=== PATIENT | female | born 1960 | race African-American/Black ===

== ENCOUNTER 2018-02-19 16:10 | Inpatient (IN) | payer SELFPAY ==
[2018-02-19 16:18] VITALS: BP 125/57; PULSE 83; RESP 20; TEMP 99; O2SAT 96
[2018-02-19 18:07] LABS: INTERNATIONAL NORMALIZED RATIO 1.1 RATIO; PROTHROMBIN TIME - PATIENT 10.8 SEC (9.8-11.6)
[2018-02-19 18:27] LABS: BICARBONATE 25.6 MEQ/L (21.0-32.0); CALCIUM 9.1 MG/DL (8.5-10.1); CREATININE 0.92 MG/DL (0.50-1.00)
[2018-02-19] MEDS ORDERED: SODIUM CHLOR 0.9% 1000 ML INJ 1,000 ML IV SCH (19:32)
--- NOTE | 2018-02-19 19:34 | PD ---
HPI Chief Complaint: GI Complaint Time Seen by Provider: 19:24 Travel History International Travel<30 days: No Contact w/Intl Traveler<30days: No Traveled to known affect area: No History of Present Illness HPI 57-year-old female complains of abdominal pain for about 1 month. She reports after eating food it feels as though food is stuck in the upper abdomen. No vomiting, fever or diarrhea. She reports seeing a doctor once previously without any results. No weight loss or weight gain. Positive flatus. Prior surgical history includes . PFSH Past Medical History Cardiovascular Problems: Yes (SICKLE CELL) Diminished Hearing: No Sickle Cell Disease: Yes Menopausal: Yes Past Surgical History Other Surgery: Yes Social History Alcohol Use: No Tobacco Use: No Substance Use: No Allergies-Medications (Allergen,Severity, Reaction): Coded Allergies: penicillin G (Unverified Allergy, Severe, 07/09/17) Reported Meds & Prescriptions Reported Meds & Active Scripts Active No Active Prescriptions or Reported Medications Review of Systems Except as stated in HPI: all other systems reviewed are Neg General / Constitutional: No: Fever Cardiovascular: No: Chest Pain or Discomfort Respiratory: No: Cough, Shortness of Breath, Wheezing Physical Exam Narrative GENERAL: 57-year-old female mild distress secondary to pain, very thin Vital Signs Date Time Temp Pulse Resp B/P (MAP) Pulse Ox O2 Delivery O2 Flow Rate FiO2 02/19/18 16:18 99.0 83 20 125/57 (79) 96 SKIN: Warm and dry. HEAD: Atraumatic. Normocephalic. EYES: Pupils equal and round. No scleral icterus. No injection or drainage. ENT: No nasal bleeding or discharge. Mucous membranes pink and moist. NECK: Trachea midline. No JVD. CARDIOVASCULAR: Regular rate and rhythm. RESPIRATORY: No accessory muscle use. Clear to auscultation. Breath sounds equal bilaterally. GASTROINTESTINAL: Abdomen is mildly prominent. Generalized nonspecific tenderness to palpation noted. MUSCULOSKELETAL: Extremities without clubbing, cyanosis, or edema. No obvious deformities. NEUROLOGICAL: Awake and alert. No obvious cranial nerve deficits. Motor grossly within normal limits. Five out of 5 muscle strength in the arms and legs. Normal speech. PSYCHIATRIC: Appropriate mood and affect; insight and judgment normal. Data Data Last Documented VS Vital Signs Date Time Temp Pulse Resp B/P (MAP) Pulse Ox O2 Delivery O2 Flow Rate FiO2 02/19/18 23:33 98.2 83 20 123/58 99 02/19/18 22:09 Nasal Cannula 2.00 Orders Orders Complete Blood Count With Diff (02/19/18 16:21) Basic Metabolic Panel (Bmp) (02/19/18 16:21) Act Partial Throm Time (Ptt) (02/19/18 16:21) Prothrombin Time / Inr (Pt) (02/19/18 16:21) Urinalysis - C+S If Indicated (02/19/18 16:21) Iv Access Insert/Monitor (02/19/18 19:32) Ecg Monitoring (02/19/18 19:32) Oximetry (02/19/18 19:32) Ondansetron Inj (Zofran Inj) (02/19/18 19:45) Sodium Chlor 0.9% 1000 Ml Inj (Ns 1000 M (02/19/18 19:32) Sodium Chloride 0.9% Flush (Ns Flush) (02/19/18 19:45) Morphine Inj (Morphine Inj) (02/19/18 19:45) Al-Mag Hy-Si 40-40-4 Mg/Ml Liq (Mag-Al P (02/19/18 19:45) Lidocaine 2% Viscous (Xylocaine 2% Visco (02/19/18 19:45) Oral Contrast - Adult (02/19/18 19:38) Hepatic Functional Panel (02/19/18 17:30) Lipase (02/19/18 17:30) Type And Screen (02/19/18 21:06) Red Blood Cells (Rbc) (02/19/18 21:06) Blood Product Administration (02/19/18 21:06) Retic Count (02/19/18 21:06) Prothrombin Time / Inr (Pt) (02/19/18 21:08) Act Partial Throm Time (Ptt) (02/19/18 21:08) Sodium Chlor 0.9% 1000 Ml Inj (Ns 1000 M (02/19/18 22:45) Ct Abd/Pel W/O Iv Contrast (02/19/18 19:32) Admit Order (Ed Use Only) (02/19/18 ) Insurance Writer / Telemetry KENNEY.[email or web address] (02/19/18 23:31) Vital Signs (Adult) Q4H (02/19/18 23:31) Diet Npo (02/20/18 Breakfast) Activity Bed Rest (02/19/18 23:31) Labs Laboratory Tests Test 02/19/18 17:30 02/19/18 20:12 02/19/18 21:45 Prothrombin Time 10.8 SEC 10.9 SEC Prothromb Time International Ratio 1.1 RATIO 1.1 RATIO Activated Partial Thromboplast Time 24.6 SEC 21.9 SEC Blood Urea Nitrogen 9 MG/DL Creatinine 0.92 MG/DL Random Glucose 96 MG/DL Total Protein 9.8 GM/DL Albumin 3.6 GM/DL Calcium Level 9.1 MG/DL Alkaline Phosphatase 97 U/L Aspartate Amino Transf (AST/SGOT) 22 U/L Alanine Aminotransferase (ALT/SGPT) 10 U/L Total Bilirubin 2.1 MG/DL Direct Bilirubin 0.5 MG/DL Sodium Level 140 MEQ/L Potassium Level 4.9 MEQ/L Chloride Level 108 MEQ/L Carbon Dioxide Level 25.6 MEQ/L Anion Gap 6 MEQ/L Estimat Glomerular Filtration Rate 76 ML/MIN Indirect Bilirubin 1.6 MG/DL Lipase 219 U/L White Blood Count 10.7 TH/MM3 Red Blood Count 1.78 MIL/MM3 Hemoglobin 5.5 GM/DL Hematocrit 16.0 % Mean Corpuscular Volume 89.7 FL Mean Corpuscular Hemoglobin 30.6 PG Mean Corpuscular Hemoglobin Concent 34.2 % Red Cell Distribution Width 24.9 % Platelet Count 350 TH/MM3 Mean Platelet Volume 10.0 FL Neutrophils (%) (Auto) 64.2 % Lymphocytes (%) (Auto) 23.4 % Monocytes (%) (Auto) 10.4 % Eosinophils (%) (Auto) 0.3 % Basophils (%) (Auto) 1.7 % Neutrophils # (Auto) 6.8 TH/MM3 Lymphocytes # (Auto) 2.5 TH/MM3 Monocytes # (Auto) 1.1 TH/MM3 Eosinophils # (Auto) 0.0 TH/MM3 Basophils # (Auto) 0.2 TH/MM3 CBC Comment DIFF FINAL Differential Comment Reticulocyte Count 14.8 % Absolute Reticulocyte Count 214.1 MIL/L MDM Medical Decision Making Medical Screen Exam Complete: Yes Emergency Medical Condition: Yes Medical Record Reviewed: Yes Differential Diagnosis Constipation, Gastritis, Acute Cholecystitis, Biliary Colic, Pancreatitis, TREVIZO , Hepatitis, Bowel Obstruction, Cystitis, Mesenteric Ischemia, AAA, Appendicitis , Renal Stone/Hydronephrosis, GERD, perforated viscous Narrative Course CBC & BMP Diagram 02/19/18 17:30 Total Protein 9.8 H, Albumin 3.6, Calcium Level 9.1, Alkaline Phosphatase 97, Aspartate Amino Transf (AST/SGOT) 22, Alanine Aminotransferase (ALT/SGPT) 10, Total Bilirubin 2.1 H, Direct Bilirubin 0.5 H 02/19/18 20:12 Last 24 hours Impressions Abdomen/Pelvis CT 02/19/18 1932 Signed Impressions: Service Date/Time: Monday, February 19, 2018 22:44 - CONCLUSION: 1. Large cystic mass containing septations and calcifications within the abdomen and pelvis measuring up to 23 cm. 2. Small amount of free fluid. 3. Mild distention of the urinary bladder. 4. Minimal bibasilar densities could be atelectasis or minimal infiltrate. Jarred Salas MD Packed red cells ordered Case discussed with Dr Torre Critical Care Narrative Aggregate critical care time was 35 minutes. Time to perform other separately billable procedures was not included in the critical care time. My time did not include minutes spent treating any other patients simultaneously or on activities that did not directly contribute to the patient's treatment. The services I provided to this patient were to treat and/or prevent clinically significant deterioration that could result in: Hemorrhagic shock I provided critical care services requiring my management, as noted below: Chart data review, documentation time, medication orders and management, vital sign assessments/reviewing monitor data, ordering and reviewing lab tests, ordering and interpreting/reviewing x-rays and diagnostic studies, care of the patient and discussion of the patient with the admitting physicians. Diagnosis Primary Impression: Anemia Qualified Codes: D64.9 - Anemia, unspecified Additional Impression: Ovarian cystic mass Qualified Codes: N83.209 - Unspecified ovarian cyst, unspecified side Admitting Information Admitting Physician Requests: Admit Scripts No Active Prescriptions or Reported Eric Lewis MD Feb 19, 2018 19:34
[2018-02-19] MEDS ORDERED: ONDANSETRON HCL 4 MG/2 ML VIAL IVP ONE (19:45)
[2018-02-19] MEDS ORDERED: ALUMINUM/MAGNESIUM/SIMETH 30 ML CUP PO ONE (19:45)
[2018-02-19] MEDS ORDERED: LIDOCAINE VISCOUS 2% SOLN 15 ML UDC PO ONE (19:45)
[2018-02-19] MEDS ORDERED: MORPHINE SULFATE 8 MG/ML INJ IV PUSH ONE (19:45)
[2018-02-19] MEDS ORDERED: SODIUM CHLORIDE 0.9% FLUSH 10 ML FLUSH IV FLUSH PRN (19:45)
[2018-02-19 19:54] VITALS: BP 132/62; PULSE 80; RESP 16; O2SAT 97
[2018-02-19 20:51] LABS: AUTOMATED NEUTROPHIL # 6.8 TH/MM3 (1.8-7.7); BASOPHIL # 0.2 TH/MM3 (0-0.2); BASOPHIL % 1.7 % (0.0-2.0); EOSINOPHIL % 0.3 % (0.0-4.0); LYMPH % 23.4 % (9.0-44.0); LYMPHOCYTE # 2.5 TH/MM3 (1.0-4.8); MEAN CELL VOLUME 89.7 FL (80.0-100.0); MEAN CORPUSCULAR HEMOGLOBIN 30.6 PG (27.0-34.0); MEAN CORPUSCULAR HGB CONC 34.2 % (32.0-36.0); MONO % 10.4 % (0.0-8.0); MONOCYTE # 1.1 TH/MM3 (0-0.9); NEUT % 64.2 % (16.0-70.0); PLATELET COUNT 350 TH/MM3 (150-450); RED BLOOD COUNT 1.78 MIL/MM3 (4.00-5.30); RED CELL DISTRIBUTION WIDTH 24.9 % (11.6-17.2); WHITE BLOOD COUNT 10.7 TH/MM3 (4.0-11.0)
[2018-02-19 21:02] LABS: HEMOGLOBIN 5.5 GM/DL (11.6-15.3)
[2018-02-19 21:43] LABS: ALBUMIN 3.6 GM/DL (3.4-5.0); DIRECT BILIRUBIN ADULT 0.5 MG/DL (0.0-0.2); INDIRECT BILIRUBIN 1.6 MG/DL (0.0-0.8); TOTAL BILIRUBIN ADULT 2.1 MG/DL (0.2-1.0); TOTAL PROTEIN 9.8 GM/DL (6.4-8.2)
[2018-02-19 22:09] VITALS: BP 118/58; PULSE 93; RESP 16; TEMP 98.9; O2SAT 95
[2018-02-19 22:26] LABS: RETIC # 214.1 MIL/L (20.0-150.0); RETIC % 14.8 % (0.4-3.0)
[2018-02-19 22:36] LABS: INTERNATIONAL NORMALIZED RATIO 1.1 RATIO; PROTHROMBIN TIME - PATIENT 10.9 SEC (9.8-11.6)
[2018-02-19] MEDS ORDERED: SODIUM CHLOR 0.9% 1000 ML INJ 1,000 ML IV ONE (22:45)
--- NOTE | 2018-02-19 23:13 | RADRPT ---
EXAM DATE/TIME: 02/19/2018 22:44 [facility] COMPARISON: No previous studies available for comparison. INDICATIONS : Abdomen pain and distention, sickle cell crisis. ORAL CONTRAST: Prescribed oral contrast ingested. RADIATION DOSE: 5.12 CTDIvol (mGy) MEDICAL HISTORY : Sickle cell disease. SURGICAL HISTORY : None. ENCOUNTER: Initial ACUITY: 2 weeks PAIN SCALE: 7/10 LOCATION: Bilateral abdomen TECHNIQUE: Volumetric scanning of the abdomen and pelvis was performed. Using automated exposure control and ad justment of the mA and/or kV according to patient size, radiation dose was kept as low as reasonably achievable to obtain optimal diagnostic quality images. DICOM format image data is available electro nically for review and comparison. FINDINGS: LOWER LUNGS: Minimal bibasilar densities. LIVER: Homogeneous density without lesion. There is no dilation of the biliary tree. There are calcified ga llstones. SPLEEN: Normal size without lesion. PANCREAS: Within normal limits. KIDNEYS: Normal in size and shape. There is no mass, stone, or hydronephrosis. ADRENAL GLANDS: Within normal limits. VASCULAR: There is no aortic aneurysm. BOWEL/MESENTERY: The stomach, small bowel, and colon demonstrate no acute abnormality. There is no free intraperitone al air or fluid. Large mass containing septation and peripheral calcification in the abdomen inferior ly at the level of the bladder extending superiorly to the level of the kidneys measures 14.6 x 23.3 x 20.0 cm. ABDOMINAL WALL: Within normal limits. RETROPERITONEUM: There is no lymphadenopathy. BLADDER: No wall thickening or mass. Mildly distended. This REPRODUCTIVE: Small amount of pelvic free fluid. INGUINAL: There is no lymphadenopathy or hernia. MUSCULOSKELETAL: Within normal limits for patient age. CONCLUSION: 1. Large cystic mass containing septations and calcifications within the abdomen and pelvis measuring up to 23 cm. 2. Small amount of free fluid. 3. Mild distention of the urinary bladder. 4. Minimal bibasilar densities could be atelectasis or minimal infiltrate. Jarred Salas MD on February 19, 2018 at 23:04 Board Certified Radiologist. This report was verified electronically.
[2018-02-19 23:33] VITALS: BP 123/58; PULSE 83; RESP 20; TEMP 98.2; O2SAT 99
[2018-02-19 23:48] VITALS: BP 130/63; PULSE 82; RESP 21; TEMP 98; O2SAT 97
[2018-02-20] VITALS (13 sets, daily range): BP systolic 104–128; BP diastolic 52–62; PULSE 59–81; RESP 16–20; TEMP 98–98.8; O2SAT 86–98
[2018-02-20] MEDS ORDERED: SODIUM CHLORIDE 0.9% FLUSH 10 ML FLUSH IVF PRN
[2018-02-20] MEDS ORDERED: AZITHROMYCIN 250 MG TAB PO ONE
[2018-02-20] MEDS ORDERED: cefTRIAXone INJ 1,000 MG in SODIUM CHLORIDE 0.9% INJ 100 ML IV ONE ×2
[2018-02-20] MEDS ORDERED: ONDANSETRON HCL 4 MG/2 ML VIAL IVP PRN (00:45)
[2018-02-20] MEDS ORDERED: SODIUM CHLORIDE 0.9% FLUSH 10 ML FLUSH IV FLUSH PRN (00:45)
[2018-02-20] MEDS ORDERED: ACETAMINOPHEN 325 MG TAB PO PRN (00:45)
[2018-02-20] MEDS ORDERED: MAGNESIUM HYDROXIDE SUSP 30 ML CUP PO PRN (00:45)
[2018-02-20] MEDS ORDERED: NALOXONE HCL 0.4 MG/ML AMP IV PUSH PRN (00:45)
[2018-02-20] MEDS ORDERED: LACTULOSE SYRUP 20 GM/30 ML CUP PO PRN (00:45)
--- NOTE | 2018-02-20 00:54 | HHI.HP ---
HPI Service [facility] Primary Care Physician No Primary Care Physician Admission Diagnosis Anemia; Cystic Pelvic Mass Diagnoses: Chief Complaint: Abdominal pain Travel History International Travel<30 Days: No Contact w/Intl Traveler <30 Da: No Traveled to Known Affected Are: No History of Present Illness 57-year-old female with a history of sickle cell anemia presented to the ED with abdominal pain. She states the abdominal pain is an 8/10, throbbing, left- sided with associated nausea for the past 2 months, worse with eating, better with pain medicine. She states 2 months ago she moved from [place] and prior to her move she was evaluated there and had a scan done on her abdomen and was told nothing was wrong. She states she does have significant weight loss but is unsure how much of a loss. She states the abdominal distention has just been getting worse over the past few months. She does not have a primary care physician and she does not take any routine meds at home. She denies any other associated symptoms of chest pain, shortness of breath fevers or chills. Review of Systems Except as stated in HPI: all other systems reviewed are Neg Past Family Social History Past Medical History Sickle cell anemia Past Surgical History Left elbow repair Reported Medications Reported Meds & Active Scripts Active No Active Prescriptions or Reported Medications Allergies: Coded Allergies: penicillin G (Unverified Allergy, Severe, 07/09/17) Active Ordered Medications Current Medications Medications (Trade) Dose Ordered Sig/Jeri Route Start Time Stop Time Status Last Admin (NS Flush) 2 ml UNSCH PRN IV FLUSH 02/19/18 19:45 (NS Flush) 2 ml UNSCH PRN IVF 02/20/18 00:00 Family History Patient denies any family history. Social History Patient denies any tobacco, alcohol or illicit drug use Physical Exam Vital Signs Vital Signs Date Time Temp Pulse Resp B/P (MAP) Pulse Ox O2 Delivery O2 Flow Rate FiO2 02/20/18 00:43 98.4 81 17 122/59 (80) 95 02/19/18 23:48 98.0 82 21 130/63 97 02/19/18 23:33 98.2 83 20 123/58 99 02/19/18 22:09 98.9 93 16 118/58 (78) 95 Nasal Cannula 2.00 02/19/18 19:54 80 16 132/62 (85) 97 Room Air 02/19/18 16:18 99.0 83 20 125/57 (79) 96 Physical Exam GENERAL: This is a very thin patient SKIN: No rashes, ecchymoses or lesions. Cool and dry. HEAD: Atraumatic. Normocephalic. EYES: Pupils equal round and reactive. ENT: Nose without bleeding, purulent drainage or septal hematoma. Airway patent. NECK: Trachea midline. No JVD or lymphadenopathy. Supple, nontender, no meningeal signs. CARDIOVASCULAR: Regular rate and rhythm without murmurs, gallops, or rubs. RESPIRATORY: Clear to auscultation. Breath sounds equal bilaterally. No wheezes , rales, or rhonchi. GASTROINTESTINAL: Abdomen hard,tender, and distended. MUSCULOSKELETAL: Extremities without clubbing, cyanosis, or edema. No calf tenderness. NEUROLOGICAL: Awake and alert. . Motor and sensory grossly within normal limits. Normal speech. Laboratory Laboratory Tests Test 02/19/18 17:30 02/19/18 20:12 02/19/18 21:45 Prothrombin Time 10.8 10.9 Prothromb Time International Ratio 1.1 1.1 Activated Partial Thromboplast Time 24.6 21.9 Blood Urea Nitrogen 9 Creatinine 0.92 Random Glucose 96 Total Protein 9.8 Albumin 3.6 Calcium Level 9.1 Alkaline Phosphatase 97 Aspartate Amino Transf (AST/SGOT) 22 Alanine Aminotransferase (ALT/SGPT) 10 Total Bilirubin 2.1 Direct Bilirubin 0.5 Sodium Level 140 Potassium Level 4.9 Chloride Level 108 Carbon Dioxide Level 25.6 Anion Gap 6 Estimat Glomerular Filtration Rate 76 Indirect Bilirubin 1.6 Lipase 219 White Blood Count 10.7 Red Blood Count 1.78 Hemoglobin 5.5 Hematocrit 16.0 Mean Corpuscular Volume 89.7 Mean Corpuscular Hemoglobin 30.6 Mean Corpuscular Hemoglobin Concent 34.2 Red Cell Distribution Width 24.9 Platelet Count 350 Mean Platelet Volume 10.0 Neutrophils (%) (Auto) 64.2 Lymphocytes (%) (Auto) 23.4 Monocytes (%) (Auto) 10.4 Eosinophils (%) (Auto) 0.3 Basophils (%) (Auto) 1.7 Neutrophils # (Auto) 6.8 Lymphocytes # (Auto) 2.5 Monocytes # (Auto) 1.1 Eosinophils # (Auto) 0.0 Basophils # (Auto) 0.2 CBC Comment DIFF FINAL Differential Comment Reticulocyte Count 14.8 Absolute Reticulocyte Count 214.1 Result Diagram: 02/19/18201102/19/18 1730 Imaging Last Impressions Abdomen/Pelvis CT 02/19/18 1932 Signed Impressions: Service Date/Time: Monday, February 19, 2018 22:44 - CONCLUSION: 1. Large cystic mass containing septations and calcifications within the abdomen and pelvis measuring up to 23 cm. 2. Small amount of free fluid. 3. Mild distention of the urinary bladder. 4. Minimal bibasilar densities could be atelectasis or minimal infiltrate. MD Gian Villagran VTE Risk Assessment Gian VTE Risk Assessment: No/Low Risk (score <= 1) Caprini Risk Assessment Model Point Value = 1 Point Value = 2 Point Value = 3 Point Value = 5 Age 41-60 Minor surgery BMI > 25 kg/m2 Swollen legs Varicose veins or History of unexplained or recurrent spontaneous Oral contraceptives or hormone replacement Sepsis (< 1 month) Serious lung disease, including pneumonia (< 1 month) Abnormal pulmonary function Acute myocardial infarction Congestive heart failure (< 1 month) History of inflammatory bowel disease Medical patient at bed rest Age 61-74 Arthroscopic surgery Major open surgery (> 45 min) Laparoscopic surgery (> 45 min) Malignancy Confined to bed (> 72 hours) Immobilizing plaster cast Central venous access Age >= 75 History of VTE Family history of VTE Factor V Leiden Prothrombin [id number] Lupus anticoagulant Anticardiolipin antibodies Elevated serum homocysteine Heparin-induced thrombocytopenia Other congenital or acquired thrombophilia Stroke (< 1 month) Elective arthroplasty Hip, pelvis, or leg fracture Acute spinal cord injury (< 1 month) Prophylaxis Regimen Total Risk Factor Score Risk Level Prophylaxis Regimen 0-1 Low Early ambulation 2 Moderate Order ONE of the following: *Sequential Compression Device (SCD) *Heparin 5000 units SQ BID 3-4 Higher Order ONE of the following medications: *Heparin 5000 units SQ TID *Enoxaparin/Lovenox 40 mg SQ daily (WT < 150 kg, CrCl > 30 mL/min) *Enoxaparin/Lovenox 30 mg SQ daily (WT < 150 kg, CrCl > 10-29 mL/min) *Enoxaparin/Lovenox 30 mg SQ BID (WT < 150 kg, CrCl > 30 mL/min) AND/OR *Sequential Compression Device (SCD) 5 or more Highest Order ONE of the following medications: *Heparin 5000 units SQ TID (Preferred with Epidurals) *Enoxaparin/Lovenox 40 mg SQ daily (WT < 150 kg, CrCl > 30 mL/min) *Enoxaparin/Lovenox 30 mg SQ daily (WT < 150 kg, CrCl > 10-29 mL/min) *Enoxaparin/Lovenox 30 mg SQ BID (WT < 150 kg, CrCl > 30 mL/min) AND *Sequential Compression Device (SCD) Assessment and Plan Problem List: (1) Ovarian cystic mass ICD Code: N83.209 - Unspecified ovarian cyst, unspecified side Status: Acute (2) Anemia ICD Code: D64.9 - Anemia, unspecified Status: Acute Assessment and Plan 57-year-old female with a history of sickle cell anemia presented to the ED with abdominal pain. Ovarian cystic mass, suspect cancerous, patient was significant weight loss Abdominal CT reviewed and shows a large 23 cm cystic pelvic mass -CA 125 ordered -Consult medical oncology -Pain management with IV morphine Anemia, suspect combination of cancer and sickle cell Hemoglobin 5.5 -Transfuse 2 units PRBCs -BMP in a.m. DVT prophylaxis: SCDs Discussed Condition With patient, and RN Physician Certification 2 Midnight Certification Type: Admission for Inpatient Services Order for Inpatient Services The services are ordered in accordance with Medicare regulations or non- Medicare payer requirements, as applicable. In the case of services not specified as inpatient-only, they are appropriately provided as inpatient services in accordance with the 2-midnight benchmark. Estimated LOS (days): 2 days is the estimated time the patient will need to remain in the hospital, assuming treatment plan goals are met and no additional complications. Post-Hospital Plan: Home Problem Qualifiers (1) Ovarian cystic mass: Qualified Codes: N83.209 - Unspecified ovarian cyst, unspecified side (2) Anemia: Qualified Codes: D64.9 - Anemia, unspecified Daly Mena Feb 20, 2018 00:54
[2018-02-20] MEDS ORDERED: SODIUM CHLOR 0.9% 250 ML INJ 250 ML IV ONE (01:30)
[2018-02-20] MEDS ORDERED: MORPHINE SULFATE 2 MG/ML SYRINGE IV PUSH PRN (01:30)
[2018-02-20] MEDS ORDERED: MORPHINE SULFATE 4 MG/ML INJ IV PUSH PRN (01:30)
[2018-02-20] MEDS: SODIUM CHLORIDE 0.9% FLUSH 10 ML FLUSH IV FLUSH SCH ×2 (09:19→21:47)
[2018-02-20] MEDS: DOCUSATE SODIUM 50 MG/SENNA 8.6 MG TAB PO SCH ×2 (09:19→21:42)
[2018-02-20] MEDS ORDERED: oxyCODONE/ACETAMINOPHEN 10 MG/325 MG TAB PO PRN (09:30)
[2018-02-20] MEDS ORDERED: oxyCODONE/ACETAMINOPHEN 7.5 MG/325 MG TAB PO PRN (09:30)
--- NOTE | 2018-02-20 09:42 | HHI.PR ---
Addendum to Inpatient Note Addendum Reason: Additional Documentation Additional Information Pt complaining of abdominal pain, needs to urinate. pain is a 10/10. has trouble w constipation as well. denies any active bleeding per vagina or per rectum. Abdominal pain has been going on for the past 2 months. Was evaluated in [place] but pt cannot tell me what the work up results are. abdomen: distended, firm, tender throughout. no rebound or guarding. Pt cachectic. looks tired I discussed CT results w radiologist. CA-125 elevated. I have consulted [facility]-onc for further recommendations pain meds have been adjusted. Michelle Crawford MD Feb 20, 2018 09:42
[2018-02-20 12:39] LABS: AUTOMATED NEUTROPHIL # 6.4 TH/MM3 (1.8-7.7); BASOPHIL # 0.1 TH/MM3 (0-0.2); BASOPHIL % 1.3 % (0.0-2.0); EOSINOPHIL % 0.5 % (0.0-4.0); HEMATOCRIT 22.6 % (35.0-46.0); HEMOGLOBIN 8.2 GM/DL (11.6-15.3); LYMPH % 22.9 % (9.0-44.0); LYMPHOCYTE # 2.2 TH/MM3 (1.0-4.8); MEAN CELL VOLUME 85.2 FL (80.0-100.0); MEAN PLATELET VOLUME 9.8 FL (7.0-11.0); MONO % 8.6 % (0.0-8.0); MONOCYTE # 0.8 TH/MM3 (0-0.9); NEUT % 66.7 % (16.0-70.0); PLATELET COUNT 280 TH/MM3 (150-450); RED BLOOD COUNT 2.65 MIL/MM3 (4.00-5.30); RED CELL DISTRIBUTION WIDTH 19.1 % (11.6-17.2); WHITE BLOOD COUNT 9.6 TH/MM3 (4.0-11.0)
[2018-02-20 12:41] LABS: MEAN CORPUSCULAR HGB CONC 36.4 % (32.0-36.0)
[2018-02-20] MEDS: SODIUM CHLOR 0.9% 1000 ML INJ 1,000 ML IV SCH ×2 (12:41→21:44)
--- NOTE | 2018-02-20 13:09 | PD.CONS ---
History of Present Illness Service voice network administrator/onc Consult Requested By Dr. Crawford Reason for Consult large cystic mass Primary Care Physician No Primary Care Physician Diagnoses: (1) Ovarian cystic mass (2) Anemia History of Present Illness This is a 57 year old female who came to [facility] for abdominal pain and distention. Patient reports symptoms for past 1-2 months. She has a PMH of sickle cell anemia but tells me she has not been hospitalized for the illness in the past. Upon admission she was found to be profoundly anemic with hem of 5.5 she has since been transfused 4 units of PRBCs. Mrs. Leonard denies any vaginal bleeding, rectal bleeding or blood with urination. She states she has had difficulty in passing stool recently. She reports weight loss of unknown amount. She was seen in consult by both myself and Dr. Ty where it was explained to her and her family that although surgery is usually recommended for removal of cyst...in her current ill state we could relieve the pressure/pain she is feeling by having IR perform a CT guided drainage of pelvic cyst and sent the fluid for cytology. It was explained that once she is stronger and gaining her strength back then we can see her and further discuss surgery because chances are this cyst will fill back up with fluid in time. Mrs. Leonard and her family agreed that they would like to have the fluid drained by IR and we will readdress surgery with them once she is stronger. Dr. Ty also explained that he is unsure if her weight loss and anemia is related to the mass, or is her sickle cell contributing or possible another undiagnosed process. I also reviewed with her that her CA 125 is elevated but I discussed the limitations of that tumor marker. Question answered. Review of Systems Constitutional: COMPLAINS OF: Fatigue, Weight loss Gastrointestinal: COMPLAINS OF: Abdominal pain, Constipation Except as stated in HPI: all other systems reviewed are Neg Past Family Social History Allergies: Coded Allergies: penicillin G (Unverified Allergy, Severe, 07/09/17) Past Medical History sickle cell Past Surgical History tubal ligation 3 vaginal deliveries Reported Medications Per EMR Active Ordered Medications Current Medications Ondansetron HCl (Zofran Inj) 4 mg ONCE ONCE IVP Last administered on at 20:02; Start 02/19/18 at 19:45; Stop 02/19/18 at 19:46; Status DC Sodium Chloride 1,000 ml @ 1,000 mls/hr Q1H IV Last administered on 02/19/18at 20:02; Start 02/19/18 at 19:32; Stop 02/19/18 at 20:31; Status DC Sodium Chloride (NS Flush) 2 ml UNSCH PRN IV FLUSH FLUSH AFTER USING IV ACCESS ; Start 02/19/18 at 19:45 Morphine Sulfate (Morphine Inj) 5 mg ONCE ONCE IV PUSH Last administered on at 20:02; Start 02/19/18 at 19:45; Stop 02/19/18 at 19:46; Status DC Al Hydrox/Mg Hydrox/Simethicone (Mag-Al Plus Susp Liq) 30 ml ONCE ONCE PO Last administered on 02/19/18at 20:03; Start 02/19/18 at 19:45; Stop 02/19/18 at 19:46; Status DC Lidocaine HCl (Xylocaine 2% Viscous) 15 ml ONCE ONCE PO Last administered on at 20:02; Start 02/19/18 at 19:45; Stop 02/19/18 at 19:46; Status DC Sodium Chloride 1,000 ml @ 999 mls/hr BOLUS ONCE IV Last administered on 02/19at 22:43; Start 02/19/18 at 22:45; Stop 02/19/18 at 23:45; Status DC Sodium Chloride (NS Flush) 2 ml UNSCH PRN IVF FLUSH AFTER USING IV ACCESS; Start 02/20/18 at 00:00 Ceftriaxone Sodium 1000 mg/ Sodium Chloride 100 ml @ 200 mls/hr ONCE ONCE IV ; Start 02/20/18 at 00:00; Stop 02/20/18 at 00:29; Status DC Azithromycin (Zithromax) 500 mg ONCE ONCE PO ; Start 02/20/18 at 00:00; Stop at 00:01; Status DC Sodium Chloride 1,000 ml @ 100 mls/hr Q10H IV ; Start 02/20/18 at 00:43 Sodium Chloride (NS Flush) 2 ml UNSCH PRN IV FLUSH FLUSH AFTER USING IV ACCESS ; Start 02/20/18 at 00:45 Sodium Chloride (NS Flush) 2 ml BID IV FLUSH Last administered on 02/20/18at 09: 19; Start 02/20/18 at 09:00 Acetaminophen (Tylenol) 650 mg Q4H PRN PO TEMP > 100.4; Start 02/20/18 at 00:45 Ondansetron HCl (Zofran Inj) 4 mg Q6H PRN IVP NAUSEA OR VOMITING; Start at 00:45 Naloxone HCl (Narcan Inj) 0.4 mg UNSCH PRN IV PUSH SEE LABEL COMMENTS; Start at 00:45 Senna/Docusate Sodium (Mara-Colace) 1 tab BID PO Last administered on at 09:19; Start 02/20/18 at 09:00 Magnesium Hydroxide (Milk Of Magnesia Liq) 30 ml Q12H PRN PO Mild constipation ; Start 02/20/18 at 00:45 Lactulose (Lactulose Liq) 30 ml DAILY PRN PO SEVERE CONSITIPATION; Start at 00:45 Morphine Sulfate (Morphine Inj) 2 mg Q3H PRN IV PUSH pain 1-5 Last administered on 02/20/18at 03:47; Start 02/20/18 at 01:30 Morphine Sulfate (Morphine Inj) 4 mg Q3H PRN IV PUSH breakthroug pain Last administered on 02/20/18at 09:17; Start 02/20/18 at 01:30 Sodium Chloride 250 ml @ 15 mls/hr ONCE ONCE IV ; Start 02/20/18 at 01:30; Stop 02/20/18 at 18:09 Oxycodone/ Acetaminophen (Percocet 7.5-325 Mg) 1 tab Q4H PRN PO PAIN SCALE 3 TO 6; Start 02/20/18 at 09:30 Oxycodone/ Acetaminophen (Percocet 10-325 Mg) 1 tab Q6H PRN PO PAIN SCALE 7 TO 10; Start 02/20/18 at 09:30 Family History noncontributory Social History denies tobacco denies alcohol denies illegal drug use Physical Exam Vital Signs Vital Signs Date Time Temp Pulse Resp B/P (MAP) Pulse Ox O2 Delivery O2 Flow Rate FiO2 02/20/18 12:01 98.8 59 16 104/52 (69) 95 02/20/18 08:00 98.4 67 17 115/57 (76) 97 02/20/18 07:30 98.4 81 17 122/59 95 02/20/18 04:31 98.3 69 16 105/55 97 02/20/18 04:16 98.4 74 17 106/52 94 02/20/18 01:34 98.4 81 17 122/60 95 02/20/18 00:43 98.4 81 17 122/59 (80) 95 02/19/18 23:48 98.0 82 21 130/63 97 02/19/18 23:33 98.2 83 20 123/58 99 02/19/18 22:09 98.9 93 16 118/58 (78) 95 Nasal Cannula 2.00 02/19/18 19:54 80 16 132/62 (85) 97 Room Air 02/19/18 16:18 99.0 83 20 125/57 (79) 96 Physical Exam GENERAL: frail, in no apparent distress. SKIN: No rashes, ecchymoses or lesions. Cool and dry. HEAD: Atraumatic. Normocephalic. No temporal or scalp tenderness. EYES: Pupils equal round and reactive. Extraocular motions intact. No scleral icterus. No injection or drainage. NECK: Trachea midline. CARDIOVASCULAR: Regular rate and rhythm without murmurs, gallops, or rubs. RESPIRATORY: Clear to auscultation. Breath sounds equal bilaterally. No wheezes , rales, or rhonchi. GASTROINTESTINAL: Abdomen distended and firm, generalized tenderness MUSCULOSKELETAL: Extremities without clubbing, cyanosis, or edema. NEUROLOGICAL: Awake and alert. Normal speech. Laboratory Laboratory Tests Test 02/19/18 17:30 02/19/18 21:45 02/20/18 01:50 02/20/18 12:24 Estimat Glomerular Filtration Rate 76 ML/MIN Blood Urea Nitrogen 9 MG/DL Creatinine 0.92 MG/DL Random Glucose 96 MG/DL Total Protein 9.8 GM/DL Albumin 3.6 GM/DL Calcium Level 9.1 MG/DL Alkaline Phosphatase 97 U/L Aspartate Amino Transf (AST/SGOT) 22 U/L Alanine Aminotransferase (ALT/SGPT) 10 U/L Total Bilirubin 2.1 MG/DL Direct Bilirubin 0.5 MG/DL Sodium Level 140 MEQ/L Potassium Level 4.9 MEQ/L Chloride Level 108 MEQ/L Carbon Dioxide Level 25.6 MEQ/L Indirect Bilirubin 1.6 MG/DL Lipase 219 U/L Reticulocyte Count 14.8 % Absolute Reticulocyte Count 214.1 MIL/L Prothrombin Time 10.9 SEC Prothromb Time International Ratio 1.1 RATIO Activated Partial Thromboplast Time 21.9 SEC CA 125 Antigen 105.3 U/ML White Blood Count 9.6 TH/MM3 Red Blood Count 2.65 MIL/MM3 Hemoglobin 8.2 GM/DL Hematocrit 22.6 % Mean Corpuscular Volume 85.2 FL Mean Corpuscular Hemoglobin 31.0 PG Mean Corpuscular Hemoglobin Concent 36.4 % Red Cell Distribution Width 19.1 % Platelet Count 280 TH/MM3 Mean Platelet Volume 9.8 FL Neutrophils (%) (Auto) 66.7 % Lymphocytes (%) (Auto) 22.9 % Monocytes (%) (Auto) 8.6 % Eosinophils (%) (Auto) 0.5 % Basophils (%) (Auto) 1.3 % Neutrophils # (Auto) 6.4 TH/MM3 Lymphocytes # (Auto) 2.2 TH/MM3 Monocytes # (Auto) 0.8 TH/MM3 Eosinophils # (Auto) 0.0 TH/MM3 Basophils # (Auto) 0.1 TH/MM3 CBC Comment AUTO DIFF Laboratory Tests Test 02/19/18 17:30 02/19/18 20:12 02/19/18 21:45 02/20/18 01:50 Prothrombin Time 10.8 10.9 Prothromb Time International Ratio 1.1 1.1 Activated Partial Thromboplast Time 24.6 21.9 Blood Urea Nitrogen 9 Creatinine 0.92 Random Glucose 96 Total Protein 9.8 Albumin 3.6 Calcium Level 9.1 Alkaline Phosphatase 97 Aspartate Amino Transf (AST/SGOT) 22 Alanine Aminotransferase (ALT/SGPT) 10 Total Bilirubin 2.1 Direct Bilirubin 0.5 Sodium Level 140 Potassium Level 4.9 Chloride Level 108 Carbon Dioxide Level 25.6 Anion Gap 6 Estimat Glomerular Filtration Rate 76 Indirect Bilirubin 1.6 Lipase 219 White Blood Count 10.7 Red Blood Count 1.78 Hemoglobin 5.5 Hematocrit 16.0 Mean Corpuscular Volume 89.7 Mean Corpuscular Hemoglobin 30.6 Mean Corpuscular Hemoglobin Concent 34.2 Red Cell Distribution Width 24.9 Platelet Count 350 Mean Platelet Volume 10.0 Neutrophils (%) (Auto) 64.2 Lymphocytes (%) (Auto) 23.4 Monocytes (%) (Auto) 10.4 Eosinophils (%) (Auto) 0.3 Basophils (%) (Auto) 1.7 Neutrophils # (Auto) 6.8 Lymphocytes # (Auto) 2.5 Monocytes # (Auto) 1.1 Eosinophils # (Auto) 0.0 Basophils # (Auto) 0.2 CBC Comment DIFF FINAL Differential Comment Reticulocyte Count 14.8 Absolute Reticulocyte Count 214.1 CA 125 Antigen 105.3 Test 02/20/18 12:24 White Blood Count 9.6 Red Blood Count 2.65 Hemoglobin 8.2 Hematocrit 22.6 Mean Corpuscular Volume 85.2 Mean Corpuscular Hemoglobin 31.0 Mean Corpuscular Hemoglobin Concent 36.4 Red Cell Distribution Width 19.1 Platelet Count 280 Mean Platelet Volume 9.8 Neutrophils (%) (Auto) 66.7 Lymphocytes (%) (Auto) 22.9 Monocytes (%) (Auto) 8.6 Eosinophils (%) (Auto) 0.5 Basophils (%) (Auto) 1.3 Neutrophils # (Auto) 6.4 Lymphocytes # (Auto) 2.2 Monocytes # (Auto) 0.8 Eosinophils # (Auto) 0.0 Basophils # (Auto) 0.1 CBC Comment AUTO DIFF Date/Time Source Procedure Growth Status 02/20/18 01:50 Blood Peripheral Aerobic Blood Culture Pending Received 02/20/18 01:50 Blood Peripheral Anaerobic Blood Culture Pending Received Result Diagram: 02/19/18201102/19/18 1730 Imaging Last Impressions Abdomen/Pelvis CT 02/19/18 1932 Signed Impressions: Service Date/Time: Monday, February 19, 2018 22:44 - CONCLUSION: 1. Large cystic mass containing septations and calcifications within the abdomen and pelvis measuring up to 23 cm. 2. Small amount of free fluid. 3. Mild distention of the urinary bladder. 4. Minimal bibasilar densities could be atelectasis or minimal infiltrate. Jarred Salas MD Assessment and Plan Problem List: (1) Ovarian cystic mass ICD Codes: N83.209 - Unspecified ovarian cyst, unspecified side Status: Acute Plan: order placed to IR for ct guided drainage of pelvic cyst, as much fluid as possible, and fluid to be sent to cytology patient will follow up with voice network administrator/onc as out patient for discussion of surgery at a later date. (2) Anemia ICD Codes: D64.9 - Anemia, unspecified Status: Acute Plan: s/p transfusion of 4 units PRBCs daily labs monitored by hospitalist Discussed Condition With patient and family Physician Attestation This consult was seen by both myself and Dr. Ty and he is in agreement with plan of care. Problem Qualifiers (1) Ovarian cystic mass: Qualified Codes: N83.209 - Unspecified ovarian cyst, unspecified side (2) Anemia: Qualified Codes: D64.9 - Anemia, unspecified Arlene Friedman Feb 20, 2018 13:09
[2018-02-20 13:25] LABS: CORRECTED NUCLEATED RBC 2 /100 WBC (0-0); LYMPHOCYTES 19 % (9-44); MONOCYTES 3 % (0-8); NEUTROPHIL # MANUAL DIFF 7.5 TH/MM3 (1.8-7.7); NUCLEATED RED BLOOD CELL 2 (0-0); POLYS (SEG NEUTROPHILS) 78 % (16-70)
[2018-02-20 13:26] LABS: SICKLE CELLS 1+ (NORMAL); TARGET CELLS 1+ (NORMAL)
[2018-02-20 13:27] LABS: HOWELL-JOLLY BODIES PRESENT (NONE SEEN); KERATOCYTES OCC (NORMAL); POLYCHROMASIA 2.1 % (0.0-1.9)
[2018-02-20 13:31] LABS: ALKALINE PHOSPHATASE 80 U/L (45-117); ALT (GPT) 9 U/L (10-53); AST (GOT) 16 U/L (15-37); BICARBONATE 25.1 MEQ/L (21.0-32.0); BLOOD UREA NITROGEN 7 MG/DL (7-18); CHLORIDE 108 MEQ/L (98-107); CREATININE 0.73 MG/DL (0.50-1.00); GLOMERULAR FILTRATION RATE 99 ML/MIN (>89); GLUCOSE,RANDOM 92 MG/DL (74-106); SODIUM (NA) 140 MEQ/L (136-145); TOTAL BILIRUBIN ADULT 2.2 MG/DL (0.2-1.0); TOTAL PROTEIN 8.4 GM/DL (6.4-8.2)
--- NOTE | 2018-02-20 14:19 | MB ---
cc: Cathryn Lizama MD DATE: 02/20/2018 Cc: Daly TINSLEY REFERRING PHYSICIAN: Daly TINSLEY CHIEF COMPLAINT: ALVINA Roche, requests a consultation for Ms. Leonard regarding pelvic cystic mass and history of sickle cell disease. HISTORY OF PRESENT ILLNESS: Mrs. Leonard is a 57-year-old woman originally from [place]. She moved here 8 years ago from [place]. She has been down in [place] in the [facility] for 6 years. She reports that her sickle cell does not bother her. She merely takes [id number] medication. She has not had a blood transfusion for many years. She has not seen a doctor for 6 years for her sickle cell. She denies any pain at present. She denies any vasoocclusive symptoms. She denies her parents having sickle cell, I suspect they had trait. She has a maternal aunt or uncle that had sickle cell disease. She has children that have trait. One child does not have any sickle cell at all. She has been having abdominal pain for the past month or two. It prevents her from eating. She gets very full. Because her pain became unbearable she came into the hospital for evaluation. She denies any nausea or vomiting. She denies any changes in bowel habits. A CT scan in the emergency room was performed that showed a large cystic mass containing septations and calcification in the abdomen and pelvis measuring up to 23 cm. There is a small amount of free fluid. There is minimal bibasilar densities or atelectasis. She denies any cough. He was severely anemic on presentation with a hemoglobin of 5.5. She was transfused 2 units of packed red cells. Interestingly, her CT scan shows that the liver is without lesion and the spleen is normal in size, arguing further that she may merely have sickle cell trait. There is no previous hemoglobin electrophoresis. Peripheral blood shows the sickle cell and target cells, which argues more towards a thalassemia or possible thalassemia sickle hemoglobin. Her bilirubin is elevated, consistent with chronic hemolysis from the sickle cell. Her renal function is normal. Oncology was initially consulted for the pelvic cystic mass. At the time of the consultation, she was already seen by Dr. Ty and Arlene Friedman from [facility]. A plan has already been laid out. The patient's sickle cell disease was addressed. She has appropriate reticulocytosis. REVIEW OF SYSTEMS: The rest of the review of systems is negative. PAST MEDICAL HISTORY: 1. Sickle cell disease versus trait. 2. Unintentional weight loss. 3. Pelvic cystic mass. 4. Chronic hyperbilirubinemia. PAST SURGICAL HISTORY: Tubal ligation. Three vaginal deliveries. FAMILY HISTORY: Significant for a child that does not have any sickle hemoglobin. All other children have sickle cell trait. She denies mother or father having sickle cell disease or trait. SOCIAL HISTORY: Denies any tobacco, alcohol or illicit drug use. ALLERGIES: PENICILLIN G. MEDICATIONS: 1. Mara-Colace. 2. Morphine p.r.n. 3. Lactulose. PHYSICAL EXAMINATION: VITAL SIGNS: Temperature 98.8, heart rate 59, respiratory rate 16, blood pressure 104/52, saturation 95%. GENERAL: Ms. Leonard is a well-developed, very slender, cachectic-appearing woman, who looks older than stated age. HEENT: Her pupils are round, reactive to light and accommodation. Sclerae mildly icteric. Oropharynx is clear. NECK: Supple. LUNGS: Clear. CARDIOVASCULAR: Exam reveals a normal rate and rhythm. ABDOMEN: Distended, tender diffusely. Bowel sounds diminished. LOWER EXTREMITIES: With no edema. NEUROLOGIC: Exam is nonfocal. LABORATORY DATA: As described above. On 02/20/2018 hemoglobin 8.2. Platelet and white blood cell count is normal. Bilirubin 2.2. CA 125 is 105.3. ASSESSMENT AND PLAN: Mrs. 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 She still has her spleen; it is not enlarged. Hemoglobin electrophoresis will be performed. It may be difficult to interpret in light of her recent transfusion. She denies acute vasoocclusive pain crises which argues more towards a sickle cell trait. The absence of sickle cell disease in her parents suggests that both or 1 may have trait or thalassemia. Nevertheless, we will learn from the hemoglobin electrophoresis what exactly she has. I defer to Dr. Ty and Arlene Friedman further management of the pelvic cystic mass. The elevation in CA-125 is concerning. Definitive diagnosis will be pending on histology or cytology from the drainage that is planned. No additional transfusion is needed at present. When safe to do so, we will proceed with deep venous thrombosis prophylaxis. Hemoglobin will be followed, folic acid continued. MD CHERYL Bob/GREGOR , 01:41 PM , 02:18 PM
[2018-02-20 16:11] LABS: CA 19-9 3.6 U/ML (0.0-35.0)
[2018-02-20] MEDS ORDERED: ONDANSETRON HCL 4 MG/2 ML VIAL ONE (16:12)
[2018-02-20] MEDS ORDERED: LORazepam 2 MG/ML VIAL ONE (16:21)
--- NOTE | 2018-02-20 16:55 | PD.RAD ---
Post CT Procedure Prog Note Pre Procedure Diagnosis: (1) Ovarian cystic mass Post Procedure Diagnosis: (1) Ovarian cystic mass Procedure Date: Feb 20, 2018 Supervising Radiologist: Cr Soto Anesthesia: Local, Other Plan of Activity Patient to Unit: Nursing Unit Patient Condition: Good See PACS Report for procedural detail/treatment Drainage Procedure Procedure 1 Imaging Guidance: CT Side: Right Procedure Type: Aspiration Procedure: Removal Chinese: 6 Drainage: Suction Fluid Removal (CCs): 3600 Fluid Description: Complicated Cr Soto MD Feb 20, 2018 16:55
[2018-02-20] MEDS ORDERED: LIDOCAINE HCL 1% 20 ML VIAL SQ ONE (19:22)
--- NOTE | 2018-02-20 20:08 | MB ---
cc: Ann Ty MD, Kelly L MD Deveras,Michelle Kohli MD, MD DATE: 02/20/2018 REFERRING PHYSICIAN: Dr. Cathryn Lizama and Dr. Erlinda Godfrey. REASON FOR CONSULTATION: Large abdominal pelvic mass. REASON FOR ADMISSION: Failure to thrive, weight loss, weakness, abdominal distention, constipation. HISTORY OF PRESENT ILLNESS: This patient is seen. Her findings are reviewed. She is examined by me and counseled by me in conjunction with our nurse practitioner (Arlene Friedman). I agree with her findings, assessment and plan of care. This is a 57-year-old female who reports at least 2-month history of increasing abdominal pressure and distention. Associated with this she has had decreased appetite, decreased energy, some weight loss and, overall, she was just not feeling well and she presented to the emergency room. She is admitted now for further evaluation and management. She is not an excellent historian, but her and son are present for discussion. It may be that she knew of this pelvic mass from a previous workup, although records are not available. Nevertheless, she is now seen for further evaluation and management regarding these findings. OBJECTIVE DATA: Labs upon admission: She is profoundly anemic with an H and H of 5.5 and 16. She has a history of anemia, also has a history of sickle cell disease, and may be multifactorial components to her anemia. White count 10.7. Her electrolytes show preserved renal function, BUN and creatinine of 9 and 0.92, bilirubin is elevated at 2.1. Tumor markers included an alpha fetoprotein normal at 1.4, a CEA normal at 1.0, a CA-125 modestly elevated at 105. CA 19-9 is pending. IMAGING STUDIES: Abdomen and pelvis CAT scan show a 24 cm predominantly cystic mass, smooth walled with internal septations and loculations, some peripheral calcification, possibly a narrow rim of solid tissue. There is no adenopathy, no ascites, no omental thickening, no intraperitoneal nodularity. There is mild atelectasis and the bladder is mildly distended. PAST MEDICAL HISTORY: Notable most for sickle cell anemia and she has apparently been admitted previously for symptomatic anemia. ALLERGIES: PENICILLIN G. PAST SURGICAL HISTORY: Only notable for tubal ligation. OBSTETRIC GYNECOLOGIC HISTORY: Three vaginal deliveries. MEDICATIONS: As listed in her record. FAMILY HISTORY: Noncontributory. SOCIAL HISTORY: Denies alcohol or tobacco use. REVIEW OF SYSTEMS: As per history of present illness, but specifically she has not had any vaginal bleeding, spotting or blood tinged discharge, although it seems as though it has been a number of years since her last gynecologic exam or Pap smear. She does not remember having an abnormal Pap smear. She has not had any bright red blood or melenic stool change. She has no hematuria, no bleeding gums. No easy bruising. PHYSICAL EXAMINATION: VITAL SIGNS: Afebrile, pulse 59, respirations 16, blood pressure 104/52, O2 saturation is 95%. GENERAL: She is resting comfortably in bed, although appears to be somewhat weak. She is alert and oriented x3. HEENT: Pupils equal, round and reactive to light. SKIN: Warm and dry. There is no obvious adenopathy. BACK: No spinal point tenderness or CVA tenderness. HEART: Regular rate and rhythm. LUNGS: Clear. Mild rales at the bases. ABDOMEN: Tense with a mass effect that extends well above the umbilicus. It is smooth walled and extends from sidewall to sidewall. Clinically estimated to be approximately 25 cm. She itself has some central and peripheral muscle wasting. EXTREMITIES: Notable for diminished musculature. There are no palpable cords. NEUROLOGIC: Neurovascular otherwise intact. PELVIC: Pelvic exam deferred until a more optimal setting. Time is spent in discussing with her in the presence of her and son reviewing the findings in her case to date. The reason for [facility] onc[facility] consultation is explained. I explained that this mass in the pelvis extending to the abdomen may be of ovarian origin and that is why [facility] oncology is consulted. ASSESSMENT AND PLAN: This is a type of mass that size and characteristics suggest it is of ovarian origin, but sometimes it can be not from gynecologic tissue such as a mesenteric inclusion cyst or possibly something other. Nevertheless, surgery is generally the ultimate recommendation to resolve it. She is apprehensive about surgery and at the present time does not feel as though she could undergo surgery and anesthesia, but it is explained that even a large benign mass, as long as the cyst wall is intact, it will tend to continue to grow and potentially be problematic. Less invasive method would be to consider ultrasound-guided drainage to aspirate the fluid to help alleviate her symptoms, symptomatically drain the mass and then the fluid could be sent for cytology for Gram stain, culture and sensitivity and it also could tell if it is clear fluid or if it is overtly bloody. I do not think this mass is related to her profound anemia and a number of her other symptoms, and so other causes need to be evaluated. However, if there were profoundly bloody fluid within the mass then that might explain a source of blood loss with a large volume of blood going into this mass in which case it may be more likely to be related to her symptoms. CAT scan does not appear to suggest that the mass is full of blood. She also knows that ultimately she is the ultimate decision maker. If she elects for no intervention and supportive care, w would support that decision as well. The pros and cons, risks and benefits of each approach were discussed and reviewed and, whereas she accepts the possible need for surgery in the future, she declined surgery at the present time, but she is in agreement with radiology guided complete aspiration of the fluid to drain the fluid for symptomatic relief to send it for cytology, culture, sensitivity and to assess whether or not it is overtly bloody. She understands that this is a temporary measure and also understands the theoretical concern if this were an isolated malignancy, there may be a spill of malignant cells. The impact on prognosis is uncertain. She is aware of the findings that favor but do not confirm a benign process. The modestly elevated CA-125 is nonspecific in the setting of peritoneal irritation or other problems. Discussion ensued. Questions were answered. She expressed good understanding and agreed with that plan at this time. ASSESSMENT: 1. Large abdominal pelvic mass, predominantly cystic with a few septations of probable ovarian origin. 2. Profound anemia, decreased energy, decreased appetite, failure to thrive, constipation. 3. Extensive discussion PLAN: 1. Consult interventional radiology for ultrasound-guided complete aspiration of cystic mass and send the fluid for cytology, Gram stain, anaerobic and aerobic culture and sensitivity and also to assess whether or not the fluid is grossly bloody. 2. Ongoing evaluation to determine if there are other contributing causes to her anemia, overall feeling poorly, elevated bilirubin and obstipation. 3. IV fluids, bowel cathartics, correction of fluid and electrolyte status and supportive care. Thank you for the consultation. We will follow along in her care. MD DMITRY Block//rh , 04:13 PM , 05:08 PM
[2018-02-21] VITALS (7 sets, daily range): BP systolic 111–129; BP diastolic 51–64; PULSE 73–86; RESP 15–16; TEMP 98–99.3; O2SAT 90–100
--- NOTE | 2018-02-21 07:48 | RADRPT ---
EXAM DATE/TIME: 02/20/2018 16:19 [facility] COMPARISON: CT ABDOMEN & PELVIS W/O CONTRAST, February 19, 2018, 22:44. INDICATIONS : Pelvic cyst SEDATION TIME: 45 minutes MEDICATION(S): 1.) 2 mg lorazepam (Ativan) IV DEVICE(S): 1.) 6 Fr Skater FLUID: Total volume of 3600 cc of Cloudy brown fluid was removed. Fluid was sent for laboratory ordered studies. MEDICAL HISTORY : Sickle cell disease. SURGICAL HISTORY : section. Orthopedic ENCOUNTER: Initial ACUITY: 1 day PAIN SCORE: 8/10 LOCATION: Abdomen PROCEDURE: PROCEDURE : CT guided aspiration of a large cystic pelvic mass The risks, benefits and alternatives to the procedure were explained and verbal and written consent w as obtained. Using automated exposure control and adjustment of the mA and/or kV according to patien t size, radiation dose was kept as low as reasonably achievable to obtain optimal diagnostic quality images. The site was prepped in sterile fashion. Full sterile technique was used, including cap, ma sk, sterile gloves and gown and a large sterile sheet. Hand hygiene and 2% chlorhexidine and/or beta dine/alcohol prep was utilized per protocol for cutaneous antisepsis. The skin and subcutaneous tiss ues were infiltrated with local anesthetic solution. DICOM format image data is available electronic ally for review and comparison. Under CT guidance a 6 [place] all-purpose drainage catheter was inserted into a large dominant cyst wi thin the pelvis. A large amount of cloudy brown fluid was aspirated. Significant debris is identified in the cyst which began to clogged the catheter precluding complete evacuation. A second large persistent fluid collection remains at the base of the pelvis following aspiration. It is uncertain whether this represents a second large cystic loculation or distended urinary bladder. CONCLUSION: Uncomplicated pelvic cyst aspiration as above. Cr Soto MD on February 21, 2018 at 7:41 Board Certified Radiologist. This report was verified electronically.
[2018-02-21 08:02] LABS: AUTOMATED NEUTROPHIL # 5.8 TH/MM3 (1.8-7.7); BASOPHIL # 0.1 TH/MM3 (0-0.2); BASOPHIL % 1.3 % (0.0-2.0); EOSINOPHIL # 0.1 TH/MM3 (0-0.4); EOSINOPHIL % 0.7 % (0.0-4.0); HEMATOCRIT 22.5 % (35.0-46.0); HEMOGLOBIN 8.1 GM/DL (11.6-15.3); LYMPHOCYTE # 1.5 TH/MM3 (1.0-4.8); MEAN CELL VOLUME 85.8 FL (80.0-100.0); MEAN CORPUSCULAR HEMOGLOBIN 30.8 PG (27.0-34.0); MEAN CORPUSCULAR HGB CONC 35.9 % (32.0-36.0); MEAN PLATELET VOLUME 9.8 FL (7.0-11.0); MONO % 7.6 % (0.0-8.0); MONOCYTE # 0.6 TH/MM3 (0-0.9); NEUT % 72.4 % (16.0-70.0); PLATELET COUNT 292 TH/MM3 (150-450); RED BLOOD COUNT 2.63 MIL/MM3 (4.00-5.30); RED CELL DISTRIBUTION WIDTH 19.6 % (11.6-17.2); WHITE BLOOD COUNT 8.1 TH/MM3 (4.0-11.0)
[2018-02-21 08:40] LABS: ALBUMIN 2.8 GM/DL (3.4-5.0); ALT (GPT) 9 U/L (10-53); AST (GOT) 17 U/L (15-37); BICARBONATE 22.8 MEQ/L (21.0-32.0); BLOOD UREA NITROGEN 8 MG/DL (7-18); CALCIUM 8.8 MG/DL (8.5-10.1); CHLORIDE 110 MEQ/L (98-107); CREATININE 0.77 MG/DL (0.50-1.00); GLOMERULAR FILTRATION RATE 93 ML/MIN (>89); GLUCOSE,RANDOM 70 MG/DL (74-106); SODIUM (NA) 141 MEQ/L (136-145)
[2018-02-21 08:43] LABS: ALKALINE PHOSPHATASE 86 U/L (45-117); TOTAL BILIRUBIN ADULT 1.8 MG/DL (0.2-1.0); TOTAL PROTEIN 7.8 GM/DL (6.4-8.2)
[2018-02-21] MEDS: DOCUSATE SODIUM 50 MG/SENNA 8.6 MG TAB PO SCH ×2 (09:26→20:53)
[2018-02-21] MEDS: SODIUM CHLOR 0.9% 1000 ML INJ 1,000 ML IV SCH ×2 (09:27→16:43)
[2018-02-21] MEDS: SODIUM CHLORIDE 0.9% FLUSH 10 ML FLUSH IV FLUSH SCH ×2 (09:27→20:54)
[2018-02-21 09:36] LABS: SICKLE CELLS 1+ (NORMAL); TARGET CELLS 1+ (NORMAL)
--- NOTE | 2018-02-21 10:46 | PD.ONC.PN ---
Subjective Subjective Remarks Afebrile overnight. Patient denies any crisis type pain. she has a little bit of pelvic soreness, but she states it feels much better since being drained yesterday in invasive radiology no chest pain or shortness of breath. Objective Data Date Time Temp Pulse Resp B/P (MAP) Pulse Ox O2 Delivery O2 Flow Rate FiO2 02/21/18 04:00 98.1 78 15 129/64 (85) 100 02/21/18 00:10 98.2 77 15 123/63 (83) 98 02/20/18 20:10 98.3 77 20 128/62 (84) 95 02/20/18 19:04 65 02/20/18 18:35 98.8 68 17 105/57 (73) 98 02/20/18 18:35 98.8 68 02/20/18 18:05 98.3 77 18 110/56 (74) 96 02/20/18 17:55 98.0 77 16 117/56 (76) 86 02/20/18 17:55 98.0 77 16 02/20/18 15:30 98.4 68 20 113/55 (74) 95 02/20/18 12:01 98.8 59 16 104/52 (69) 95 02/21/18 02/21/18 02/21/18 07:00 15:00 23:00 Intake Total 0 ml Balance 0 ml Result Diagram: 02/21/18 0740 02/21/18 0740 Laboratory Results Laboratory Tests Test 02/20/18 12:24 02/20/18 14:25 02/21/18 07:40 White Blood Count 9.6 TH/MM3 8.1 TH/MM3 Red Blood Count 2.65 MIL/MM3 2.63 MIL/MM3 Hemoglobin 8.2 GM/DL 8.1 GM/DL Hematocrit 22.6 % 22.5 % Mean Corpuscular Volume 85.2 FL 85.8 FL Mean Corpuscular Hemoglobin 31.0 PG 30.8 PG Mean Corpuscular Hemoglobin Concent 36.4 % 35.9 % Red Cell Distribution Width 19.1 % 19.6 % Platelet Count 280 TH/MM3 292 TH/MM3 Mean Platelet Volume 9.8 FL 9.8 FL Neutrophils (%) (Auto) 66.7 % 72.4 % Lymphocytes (%) (Auto) 22.9 % 18.0 % Monocytes (%) (Auto) 8.6 % 7.6 % Eosinophils (%) (Auto) 0.5 % 0.7 % Basophils (%) (Auto) 1.3 % 1.3 % Neutrophils # (Auto) 6.4 TH/MM3 5.8 TH/MM3 Lymphocytes # (Auto) 2.2 TH/MM3 1.5 TH/MM3 Monocytes # (Auto) 0.8 TH/MM3 0.6 TH/MM3 Eosinophils # (Auto) 0.0 TH/MM3 0.1 TH/MM3 Basophils # (Auto) 0.1 TH/MM3 0.1 TH/MM3 CBC Comment AUTO DIFF AUTO DIFF Differential Total Cells Counted 100 Neutrophils % (Manual) 78 % Lymphocytes % 19 % Monocytes % 3 % Neutrophils # (Manual) 7.5 TH/MM3 Nucleated Red Blood Cells 2 /100 WBC Differential Comment FINAL DIFF MANUAL AUTO DIFF CONFIRMED Platelet Estimate NORMAL NORMAL Platelet Morphology Comment NORMAL NORMAL Polychromasia 2.1 % 2.0 % Sickle Cells 1+ 1+ Target Cells 1+ 1+ [place] Bodies PRESENT Keratocytes OCC Blood Urea Nitrogen 7 MG/DL 8 MG/DL Creatinine 0.73 MG/DL 0.77 MG/DL Random Glucose 92 MG/DL 70 MG/DL Total Protein 8.4 GM/DL 7.8 GM/DL Albumin 3.0 GM/DL 2.8 GM/DL Calcium Level 9.0 MG/DL 8.8 MG/DL Alkaline Phosphatase 80 U/L 86 U/L Aspartate Amino Transf (AST/SGOT) 16 U/L 17 U/L Alanine Aminotransferase (ALT/SGPT) 9 U/L 9 U/L Total Bilirubin 2.2 MG/DL 1.8 MG/DL Sodium Level 140 MEQ/L 141 MEQ/L Potassium Level 4.1 MEQ/L 4.0 MEQ/L Chloride Level 108 MEQ/L 110 MEQ/L Carbon Dioxide Level 25.1 MEQ/L 22.8 MEQ/L Anion Gap 7 MEQ/L 8 MEQ/L Estimat Glomerular Filtration Rate 99 ML/MIN 93 ML/MIN Tumor Marker Alpha Fetoprotein 1.4 NG/ML Carcinoembryonic Antigen 1.0 NG/ML CA 19-9 Antigen 3.6 U/ML Lactate Dehydrogenase 299 U/L Culture Results Microbiology Date/Time Source Procedure Growth Status 02/20/18 01:50 Blood Peripheral Aerobic Blood Culture Pending Received 02/20/18 01:50 Blood Peripheral Anaerobic Blood Culture Pending Received 02/20/18 01:45 Blood Peripheral Aerobic Blood Culture Pending Received 02/20/18 01:45 Blood Peripheral Anaerobic Blood Culture Pending Received Administered Medications Medications (Trade) Dose Ordered Sig/Jeri Route PRN Reason Start Time Stop Time Status Last Admin Dose Admin Sodium Chloride 1,000 ml @ 100 mls/hr Q10H IV 02/20/18 00:43 02/21/18 09:27 Sodium Chloride (NS Flush) 2 ml BID IV FLUSH 02/20/18 09:00 02/21/18 09:27 Senna/Docusate Sodium (Mara-Colace) 1 tab BID PO 02/20/18 09:00 02/21/18 09:26 Morphine Sulfate (Morphine Inj) 2 mg Q3H PRN IV PUSH pain 1-5 02/20/18 01:30 02/20/18 03:47 Morphine Sulfate (Morphine Inj) 4 mg Q3H PRN IV PUSH breakthroug pain 02/20/18 01:30 02/20/18 09:17 Objective Remarks GENERAL: Pleasant middle aged female, sitting up in bed in nad. eating breakfast. SKIN: Warm and dry. HEAD: Normocephalic. EYES: No injection or drainage. NECK: Supple, trachea midline. CARDIOVASCULAR: Regular rate and rhythm RESPIRATORY: Breath sounds equal bilaterally. No accessory muscle use. GASTROINTESTINAL: Abdomen soft, mildly tender in suprapubic region, nondistended. EXTREMITIES: No cyanosis NEUROLOGICAL: awake and alert. normal speech. Assessment/Plan Problem List: (1) Ovarian cystic mass ICD Codes: N83.209 - Unspecified ovarian cyst, unspecified side Status: Acute Plan: --defer to DIGITAL ASSET COORDINATOR oncology (2) History of sickle cell disease ICD Codes: Z86.2 - Personal history of diseases of the blood and blood-forming organs and certain disorders involving the immune mechanism Plan: --has no crisis symptoms. --hemoglobin electrophoresis pending (had recent blood transfusion) --no records available --likely has sickle cell trait. Assessment 57y/o female with pelvic cystic mass and history of sickle cell disease. h/o Sickle cell disease versus trait. Unintentional weight loss. Pelvic cystic mass. Chronic hyperbilirubinemia. Plan 1. monitor CBC 2. await hemoglobin electrophoresis. 3. hematology will sign off. follow up in clinic 1-2 weeks post-discharge. fs faxed to new patient referrals. Attending Statement Agree with above, as discussed, fu as out pt to review hgb electrophoresis. 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 Problem Qualifiers (1) Ovarian cystic mass: Qualified Codes: N83.209 - Unspecified ovarian cyst, unspecified side Alis Coreas Feb 21, 2018 10:46 Cathryn Lizama MD Feb 21, 2018 14:55
--- NOTE | 2018-02-21 11:08 | HHI.PR ---
Subjective Remarks In bed appears weak and tired. Patient feels very weak, did not eat yet, advance diet. No n/v/d/c. No fever or chills. No vaginal bleeding. Objective Vitals Vital Signs Date Time Temp Pulse Resp B/P (MAP) Pulse Ox O2 Delivery O2 Flow Rate FiO2 02/21/18 10:31 86 02/21/18 04:00 98.1 78 15 129/64 (85) 100 02/21/18 00:10 98.2 77 15 123/63 (83) 98 02/20/18 20:10 98.3 77 20 128/62 (84) 95 02/20/18 19:04 65 02/20/18 18:35 98.8 68 17 105/57 (73) 98 02/20/18 18:35 98.8 68 02/20/18 18:05 98.3 77 18 110/56 (74) 96 02/20/18 17:55 98.0 77 16 117/56 (76) 86 02/20/18 17:55 98.0 77 16 02/20/18 15:30 98.4 68 20 113/55 (74) 95 02/20/18 12:01 98.8 59 16 104/52 (69) 95 I/O 02/20/18 02/20/18 02/20/18 02/21/18 02/21/18 02/21/18 07:00 15:00 23:00 07:00 15:00 23:00 Intake Total 410 ml 775 ml 1000 ml 0 ml Output Total 350 ml Balance 410 ml 425 ml 1000 ml 0 ml Intake Oral 0 ml 0 ml 0 ml IV Total 365 ml 1000 ml Packed Cells 400 ml 400 ml Blood Product IV Normal Saline Flush 10 ml 10 ml Output Urine Total 350 ml # Voids 0 1 2 # Bowel Movements 0 Result Diagram: 02/21/18 0740 02/21/18 0740 Imaging Last Impressions Cyst Aspiration CT 02/20/18 0000 Signed Impressions: Service Date/Time: January 16:19 - CONCLUSION: Uncomplicated pelvic cyst aspiration as above. rC Soto MD Abdomen/Pelvis CT 02/19/18 1932 Signed Impressions: Service Date/Time: Monday, February 19, 2018 22:44 - CONCLUSION: 1. Large cystic mass containing septations and calcifications within the abdomen and pelvis measuring up to 23 cm. 2. Small amount of free fluid. 3. Mild distention of the urinary bladder. 4. Minimal bibasilar densities could be atelectasis or minimal infiltrate. Jarred Salas MD Objective Remarks GENERAL: This is a very thin patient CARDIOVASCULAR: Regular rate and rhythm without murmurs, gallops, or rubs. RESPIRATORY: Clear to auscultation. Breath sounds equal bilaterally. No wheezes , rales, or rhonchi. GASTROINTESTINAL: Abdomen hard,tender, and distended. MUSCULOSKELETAL: Extremities without clubbing, cyanosis, or edema. No calf tenderness. NEUROLOGICAL: Awake and alert. . Motor and sensory grossly within normal limits. Normal speech. Procedures cyst drainage by IR A/P Problem List: (1) Ovarian cystic mass ICD Code: N83.209 - Unspecified ovarian cyst, unspecified side Status: Acute (2) Anemia ICD Code: D64.9 - Anemia, unspecified Status: Acute Assessment and Plan 57-year-old female with a history of sickle cell anemia presented to the ED with abdominal pain. Ovarian cystic mass, suspect cancerous, patient was significant weight loss Abdominal CT reviewed and shows a large 23 cm cystic pelvic mass, s/p IR cyst CA 125 pending Consult medical oncology, ff IR consulted s/p CT guided cyst drainage with 3600 cc fluid out sent for analysis Pain management with IV morphine, transition to PO meds Anemia, suspect combination of cancer and sickle cell Hemoglobin 5.5 on admission. Transfuse 2 units PRBCs. H/H stable after transfusion. Continue to monitor Monitor H/ H transfuse if HGB is below 7 or if symptomatic DVT prophylaxis: SCDs Discussed Condition With patient, nurse DC plan: pending improvement and clearance by consultants Problem Qualifiers (1) Ovarian cystic mass: Qualified Codes: N83.209 - Unspecified ovarian cyst, unspecified side (2) Anemia: Qualified Codes: D64.9 - Anemia, unspecified Anyi Cespedes MD Feb 21, 2018 11:08
[2018-02-21] MEDS ORDERED: MORPHINE SULFATE 4 MG/ML INJ IV PUSH PRN (20:15)
[2018-02-21] MEDS ORDERED: NALOXONE HCL 0.4 MG/ML AMP IV PUSH PRN (20:15)
[2018-02-21] MEDS ORDERED: ACETAMINOPHEN/HYDROcodone 325 MG/10 MG TAB PO PRN (20:15)
[2018-02-22] VITALS: BP 125/58; PULSE 74; RESP 16; TEMP 98.8; O2SAT 95
[2018-02-22] MEDS: ACETAMINOPHEN/HYDROcodone 325 MG/5 MG TAB PO PRN ×3 (01:00→18:28)
[2018-02-22] MEDS: SODIUM CHLOR 0.9% 1000 ML INJ 1,000 ML IV SCH (02:43)
[2018-02-22 04:00] VITALS: BP 116/60; PULSE 67; RESP 18; TEMP 98.2; O2SAT 95
[2018-02-22 07:14] LABS: BASOPHIL # 0.1 TH/MM3 (0-0.2); EOSINOPHIL # 0.1 TH/MM3 (0-0.4); EOSINOPHIL % 2.1 % (0.0-4.0); HEMATOCRIT 21.7 % (35.0-46.0); HEMOGLOBIN 7.7 GM/DL (11.6-15.3); LYMPH % 23.9 % (9.0-44.0); LYMPHOCYTE # 1.5 TH/MM3 (1.0-4.8); MEAN CELL VOLUME 88.9 FL (80.0-100.0); MEAN CORPUSCULAR HEMOGLOBIN 31.5 PG (27.0-34.0); MEAN CORPUSCULAR HGB CONC 35.5 % (32.0-36.0); MEAN PLATELET VOLUME 9.9 FL (7.0-11.0); MONO % 10.4 % (0.0-8.0); MONOCYTE # 0.7 TH/MM3 (0-0.9); NEUT % 62.6 % (16.0-70.0); PLATELET COUNT 262 TH/MM3 (150-450); RED BLOOD COUNT 2.44 MIL/MM3 (4.00-5.30); RED CELL DISTRIBUTION WIDTH 20.2 % (11.6-17.2); WHITE BLOOD COUNT 6.5 TH/MM3 (4.0-11.0)
[2018-02-22 07:48] LABS: BICARBONATE 23.4 MEQ/L (21.0-32.0); CALCIUM 8.8 MG/DL (8.5-10.1); CREATININE 0.68 MG/DL (0.50-1.00)
[2018-02-22 08:00] VITALS: BP 104/51; PULSE 73; RESP 16; TEMP 98.4; O2SAT 92
--- NOTE | 2018-02-22 08:01 | HHI.PR ---
Subjective Remarks Feels tired and weak. Pain is better controlled. No nausea vomiting no diarrhea or constipation. Appetite is improved and she is asking for more food. Objective Vitals Vital Signs Date Time Temp Pulse Resp B/P (MAP) Pulse Ox O2 Delivery O2 Flow Rate FiO2 02/22/18 04:00 98.2 67 18 116/60 (78) 95 02/22/18 00:00 98.8 74 16 125/58 (80) 95 02/21/18 20:00 98.9 73 16 115/56 (75) 91 02/21/18 16:00 98.0 82 16 115/57 (76) 94 02/21/18 12:00 99.3 86 16 111/51 (71) 90 02/21/18 10:31 86 I/O 02/21/18 02/21/18 02/21/18 02/22/18 02/22/18 02/22/18 07:00 15:00 23:00 07:00 15:00 23:00 Intake Total 0 ml 1000 ml 480 ml Balance 0 ml 1000 ml 480 ml Intake Oral 0 ml 480 ml IV Total 1000 ml # Voids 2 3 1 # Bowel Movements 0 1 Result Diagram: 02/22/18 0638 02/22/18 0638 Imaging Last Impressions Cyst Aspiration CT 02/20/18 0000 Signed Impressions: Service Date/Time: January 16:19 - CONCLUSION: Uncomplicated pelvic cyst aspiration as above. Cr Soto MD Abdomen/Pelvis CT 02/19/18 1932 Signed Impressions: Service Date/Time: Monday, February 19, 2018 22:44 - CONCLUSION: 1. Large cystic mass containing septations and calcifications within the abdomen and pelvis measuring up to 23 cm. 2. Small amount of free fluid. 3. Mild distention of the urinary bladder. 4. Minimal bibasilar densities could be atelectasis or minimal infiltrate. Jarred Salas MD Objective Remarks GENERAL: This is a very thin patient CARDIOVASCULAR: Regular rate and rhythm without murmurs, gallops, or rubs. RESPIRATORY: Clear to auscultation. Breath sounds equal bilaterally. No wheezes , rales, or rhonchi. GASTROINTESTINAL: Abdomen hard,tender, and distended. MUSCULOSKELETAL: Extremities without clubbing, cyanosis, or edema. No calf tenderness. NEUROLOGICAL: Awake and alert. . Motor and sensory grossly within normal limits. Normal speech. Procedures cyst drainage by IR A/P Problem List: (1) Ovarian cystic mass ICD Code: N83.209 - Unspecified ovarian cyst, unspecified side Status: Acute (2) Anemia ICD Code: D64.9 - Anemia, unspecified Status: Acute Assessment and Plan 57-year-old female with a history of sickle cell anemia presented to the ED with abdominal pain. Ovarian cystic mass, suspect cancerous, patient was significant weight loss Abdominal CT reviewed and shows a large 23 cm cystic pelvic mass, s/p IR cyst CA 125 pending Consult medical oncology, ff IR consulted s/p CT guided cyst drainage with 3600 cc fluid out sent for analysis Pain management with IV morphine, transition to PO meds Anemia, suspect combination of cancer and sickle cell Hemoglobin 5.5 on admission. Transfuse 2 units PRBCs. H/H stable after transfusion. Continue to monitor Monitor H/ H transfuse if HGB is below 7 or if symptomatic hem onc consulted , elfo pending , patien tto f.u as OP with hem/onc DVT prophylaxis: SCDs Discussed Condition With patient, nurse DC plan: DC later today if improves. Problem Qualifiers (1) Ovarian cystic mass: Qualified Codes: N83.209 - Unspecified ovarian cyst, unspecified side (2) Anemia: Qualified Codes: D64.9 - Anemia, unspecified Anyi Cespedes MD Feb 22, 2018 08:00
[2018-02-22] MEDS: SODIUM CHLORIDE 0.9% FLUSH 10 ML FLUSH IV FLUSH SCH ×2 (09:00→21:58)
[2018-02-22] MEDS: DOCUSATE SODIUM 50 MG/SENNA 8.6 MG TAB PO SCH ×2 (09:55→21:00)
[2018-02-22 12:00] VITALS: BP 103/53; PULSE 72; RESP 16; TEMP 99.1; O2SAT 95
--- NOTE | 2018-02-22 16:49 | HHI.DS ---
Discharge Summary Admission Date Feb 19, 2018 at 23:33 Discharge Date: Feb 23, 2018 Admitting Diagnosis Anemia; Cystic Pelvic Mass (1) Ovarian cystic mass ICD Code: N83.209 - Unspecified ovarian cyst, unspecified side Status: Acute (2) Anemia ICD Code: D64.9 - Anemia, unspecified Status: Acute Procedures cyst drainage by IR Brief History - From Admission 57-year-old female with a history of sickle cell anemia presented to the ED with abdominal pain. She states the abdominal pain is an 8/10, throbbing, left- sided with associated nausea for the past 2 months, worse with eating, better with pain medicine. She states 2 months ago she moved from [place] and prior to her move she was evaluated there and had a scan done on her abdomen and was told nothing was wrong. She states she does have significant weight loss but is unsure how much of a loss. She states the abdominal distention has just been getting worse over the past few months. She does not have a primary care physician and she does not take any routine meds at home. She denies any other associated symptoms of chest pain, shortness of breath fevers or chills. CBC/BMP: 02/22/18 0638 02/22/18 0638 Significant Findings Laboratory Tests Test 02/19/18 17:30 02/19/18 20:12 02/19/18 21:45 02/20/18 01:50 Total Protein 9.8 GM/DL (6.4-8.2) Total Bilirubin 2.1 MG/DL (0.2-1.0) Direct Bilirubin 0.5 MG/DL (0.0-0.2) Chloride Level 108 MEQ/L (98-107) Estimat Glomerular Filtration Rate 76 ML/MIN (>89) Indirect Bilirubin 1.6 MG/DL (0.0-0.8) Red Blood Count 1.78 MIL/MM3 (4.00-5.30) Hemoglobin 5.5 GM/DL (11.6-15.3) Hematocrit 16.0 % (35.0-46.0) Red Cell Distribution Width 24.9 % (11.6-17.2) Monocytes (%) (Auto) 10.4 % (0.0-8.0) Monocytes # (Auto) 1.1 TH/MM3 (0-0.9) Reticulocyte Count 14.8 % (0.4-3.0) Absolute Reticulocyte Count 214.1 MIL/L (20.0-150.0) Activated Partial Thromboplast Time 21.9 SEC (24.3-30.1) CA 125 Antigen 105.3 U/ML (0.0-30.2) Test 02/20/18 12:24 02/20/18 14:25 02/21/18 07:40 02/22/18 06:38 Red Blood Count 2.65 MIL/MM3 (4.00-5.30) 2.63 MIL/MM3 (4.00-5.30) 2.44 MIL/MM3 (4.00-5.30) Hemoglobin 8.2 GM/DL (11.6-15.3) 8.1 GM/DL (11.6-15.3) 7.7 GM/DL (11.6-15.3) Hematocrit 22.6 % (35.0-46.0) 22.5 % (35.0-46.0) 21.7 % (35.0-46.0) Mean Corpuscular Hemoglobin Concent 36.4 % (32.0-36.0) Red Cell Distribution Width 19.1 % (11.6-17.2) 19.6 % (11.6-17.2) 20.2 % (11.6-17.2) Monocytes (%) (Auto) 8.6 % (0.0-8.0) 10.4 % (0.0-8.0) Neutrophils % (Manual) 78 % (16-70) Nucleated Red Blood Cells 2 /100 WBC (0-0) Polychromasia 2.1 % (0.0-1.9) 2.0 % (0.0-1.9) Sickle Cells 1+ (NORMAL) 1+ (NORMAL) Target Cells 1+ (NORMAL) 1+ (NORMAL) Keratocytes OCC (NORMAL) Total Protein 8.4 GM/DL (6.4-8.2) Albumin 3.0 GM/DL (3.4-5.0) 2.8 GM/DL (3.4-5.0) Alanine Aminotransferase (ALT/SGPT) 9 U/L (10-53) 9 U/L (10-53) Total Bilirubin 2.2 MG/DL (0.2-1.0) 1.8 MG/DL (0.2-1.0) Chloride Level 108 MEQ/L (98-107) 110 MEQ/L (98-107) 110 MEQ/L (98-107) Neutrophils (%) (Auto) 72.4 % (16.0-70.0) Random Glucose 70 MG/DL (74-106) Lactate Dehydrogenase 299 U/L (84-246) Imaging Last Impressions Cyst Aspiration CT 02/20/18 0000 Signed Impressions: Service Date/Time: January 16:19 - CONCLUSION: Uncomplicated pelvic cyst aspiration as above. Cr Soto MD Abdomen/Pelvis CT 02/19/18 1932 Signed Impressions: Service Date/Time: Monday, February 19, 2018 22:44 - CONCLUSION: 1. Large cystic mass containing septations and calcifications within the abdomen and pelvis measuring up to 23 cm. 2. Small amount of free fluid. 3. Mild distention of the urinary bladder. 4. Minimal bibasilar densities could be atelectasis or minimal infiltrate. Jarred aSlas MD PE at Discharge GENERAL: This is a very thin patient CARDIOVASCULAR: Regular rate and rhythm without murmurs, gallops, or rubs. RESPIRATORY: Clear to auscultation. Breath sounds equal bilaterally. No wheezes , rales, or rhonchi. GASTROINTESTINAL: Abdomen hard,tender, and distended. MUSCULOSKELETAL: Extremities without clubbing, cyanosis, or edema. No calf tenderness. NEUROLOGICAL: Awake and alert. . Motor and sensory grossly within normal limits. Normal speech. Pt update on day of discharge Did have a BM yesterday , patient says she has some abd pain at the biopsy site however is controlled by meds. No n/v/d/c. No fever or chills. Hospital Course 57-year-old female with a history of sickle cell anemia presented to the ED with abdominal pain. Ovarian cystic mass, suspect cancerous, patient was significant weight loss Abdominal CT reviewed and shows a large 23 cm cystic pelvic mass, s/p IR cyst CA 125 elevated Consult medical oncology, ff, cleared patient for DC to follow up as OP IR consulted s/p CT guided cyst drainage with 3600 cc fluid out sent for analysis Pain management with IV morphine, transition to PO meds Anemia, suspect combination of cancer and sickle cell Hemoglobin 5.5 on admission. Transfuse 2 units PRBCs. H/H stable after transfusion. Continue to monitor. Monitor H/ H transfuse if HGB is below 7 or if symptomatic. Hem onc consulted, appreciate recommendations. ELFO pending, patient to f/u as OP with hem/onc. Patient improved. Eating well. H/H stable. Cleared by consultants for DC. To follow up as OP with PCP and consultants. Pt Condition on Discharge: Stable Discharge Disposition: Discharge Home Discharge Time: > 30 minutes Discharge Instructions DIET: Follow Instructions for: As Tolerated, No Restrictions Activities you can perform: Regular-No Restrictions Follow up Referrals: [facility] - 1 Week [facility] - 1 Week with Ann Ty MD Oncology/Hematology - 1 Week PCP Follow-up - 2-3 Days New Medications: Hydrocodone-Acetaminophen ([place]) 5 Mg-325 Mg Tab 1 TAB PO Q6H PRN for PAIN, #10 TAB 0 Refills Sennosides-Docusate Sodium (Gnp Senna Plus 8.6-50 mg) 8.6 Mg-50 Mg Tab 1 TAB PO BID for Constipation, #60 TAB Anyi Cespedes MD Feb 22, 2018 16:49
[2018-02-22 19:50] VITALS: BP 114/55; PULSE 68; RESP 16; TEMP 98.8; O2SAT 96
[2018-02-22 23:55] VITALS: BP 124/55; PULSE 69; RESP 17; TEMP 98.4; O2SAT 96
[2018-02-23 04:15] VITALS: BP 108/57; PULSE 69; RESP 16; TEMP 98.4; O2SAT 96
[2018-02-23] MEDS: ACETAMINOPHEN/HYDROcodone 325 MG/5 MG TAB PO PRN (05:36)
[2018-02-23 08:00] VITALS: BP 126/56; PULSE 72; RESP 16; TEMP 98.8; O2SAT 98
[2018-02-23] MEDS: DOCUSATE SODIUM 50 MG/SENNA 8.6 MG TAB PO SCH (09:00)
[2018-02-23] MEDS: SODIUM CHLORIDE 0.9% FLUSH 10 ML FLUSH IV FLUSH SCH (09:00)
[2018-02-23] MEDS ORDERED: PERI PO (09:57)
[2018-02-23] MEDS ORDERED: NORC5TAB PO (09:57)
[2018-02-23 12:00] VITALS: BP 99/52; PULSE 73; RESP 16; TEMP 98.5; O2SAT 98
== END 2018-02-23 16:47 | disposition home or self-care (01) | DRG 357 ==
LOC: NEPD 16:10 → NEDA 23:33 → N06B 02-20 00:36
PROVIDERS: ADMIT Hospitalist; ATTEND Hospitalist
PROC: 30233N1 Transfusion of Nonautologous Red Blood Cells into Peripheral Vein, Percutaneous Approach (ICD-10-PCS; principal; 2018-02-19)
PROC: 0W9J3ZX Drainage of Pelvic Cavity, Percutaneous Approach, Diagnostic (ICD-10-PCS; 2018-02-19)
DX: R19.00 Intra-abdominal and pelvic swelling, mass and lump, unspecified site (principal); R64 Cachexia; D57.1 Sickle-cell disease without crisis; D64.9 Anemia, unspecified; R63.4 Abnormal weight loss; R62.7 Adult failure to thrive; K59.00 Constipation, unspecified; R53.1 Weakness
CPT/HCPCS: 10160; 36430; 74176; 77012; 80048; 80053; 80076; 82105; 82272; 82378; 83020; 83021; 83615; 83690; 85007; 85014; 85018; 85025; 85027; 85041; 85044; 85610; 85730; 86301; 86304; 86850; 86900; 86901; 86920; 86922; 87040; 88173; 88305; 96361; 96374; 96375; C1729; J2060; J2270; J2405; J7030; P9016

== ENCOUNTER 2018-03-11 20:44 | Inpatient (IN) | payer SELFPAY ==
[~2018-03-11] VITALS: Ht 157.5 cm; Wt 47.3 kg
[~2018-03-11 20:44] MED LIST: NORC5TAB PO; PERI PO
[2018-03-11 20:48] VITALS: BP 182/86; PULSE 76; RESP 16; TEMP 98.8
[2018-03-11 20:59] VITALS: O2SAT 100
[2018-03-11] MEDS ORDERED: MORPHINE SULFATE 4 MG/ML INJ IV PUSH ONE (21:00)
[2018-03-11] MEDS ORDERED: SODIUM CHLORIDE 0.9% FLUSH 10 ML FLUSH IV FLUSH PRN (21:00)
[2018-03-11] MEDS ORDERED: ONDANSETRON HCL 4 MG/2 ML VIAL IVP ONE (21:00)
--- NOTE | 2018-03-11 21:17 | RADRPT ---
EXAM DATE/TIME: 03/11/2018 21:06 [facility] COMPARISON: CHEST SINGLE AP, March 09, 2016, 19:56. INDICATIONS : Chest pain. MEDICAL HISTORY : Sickle Cell disease. SURGICAL HISTORY : None. ENCOUNTER: Initial ACUITY: 1 day PAIN SCORE: 0/10 LOCATION: Bilateral chest FINDINGS: A single view of the chest demonstrates minimal bibasilar atelectasis. The cardiomediastinal contour s are unremarkable. Cardiomegaly. Osseous structures are intact. The scoliosis thoracic spine. CONCLUSION: Bibasilar atelectasis. Jarred Salas MD on March 11, 2018 at 21:15 Board Certified Radiologist. This report was verified electronically.
[2018-03-11] MEDS ORDERED: IOHEXOL 350 MG/ML 10 ML VIAL (for RAD DIAG) IVCONTRAST ONE (21:18)
--- NOTE | 2018-03-11 21:31 | RADRPT ---
EXAM DATE/TIME: 03/11/2018 21:17 [facility] COMPARISON: No previous studies available for comparison. INDICATIONS : Abdomen distention after trauma two weeks ago. IV CONTRAST: 80 cc Omnipaque 350 (iohexol) IV ORAL CONTRAST: No oral contrast ingested. RADIATION DOSE: 6.64 CTDIvol (mGy) MEDICAL HISTORY : Sickle cell disease. SURGICAL HISTORY : Tubal ligation. Paracentisis x 2 this month post trauma. ENCOUNTER: Initial ACUITY: 1 day PAIN SCALE: 5/10 LOCATION: Bilateral abdomen TECHNIQUE: Volumetric scanning of the abdomen and pelvis was performed. Using automated exposure control and ad justment of the mA and/or kV according to patient size, radiation dose was kept as low as reasonably achievable to obtain optimal diagnostic quality images. DICOM format image data is available electro nically for review and comparison. FINDINGS: LOWER LUNGS: Oval-shaped parenchymal density left lower lobe posteriorly measures 2.4 x 1.2 cm LIVER: Homogeneous density without lesion. There is no dilation of the biliary tree. Small calcified gallst one. SPLEEN: Normal size without lesion. PANCREAS: Within normal limits. KIDNEYS: Normal in size and shape. There is no mass, stone or hydronephrosis. ADRENAL GLANDS: Within normal limits. VASCULAR: There is no aortic aneurysm. BOWEL/MESENTERY: The stomach, small bowel, and colon demonstrate no acute abnormality. There is no free intraperitone al air or fluid. ABDOMINAL WALL: Within normal limits. RETROPERITONEUM: There is no lymphadenopathy. BLADDER: No wall thickening or mass. REPRODUCTIVE: Large cystic pelvic mass with septations extend into the lower abdomen and measures 20.2 x 12.0 x 17. 2 cm. There is also some posterior calcifications. INGUINAL: There is no lymphadenopathy or hernia. MUSCULOSKELETAL: Within normal limits for patient age. CONCLUSION: 1. Large cystic mass with septations in the pelvis extending into the abdomen concerning for ovarian malignancy. Surgical consultation. 2. Cholelithiasis. 3. Abnormal parenchymal density left lower lobe measuring 2.4 x 1.2 cm. PET/CT scan recommended as ou tpatient. Jarred Salas MD on March 11, 2018 at 21:26 Board Certified Radiologist. This report was verified electronically.
[2018-03-11 21:34] LABS: AUTOMATED NEUTROPHIL # 8.1 TH/MM3 (1.8-7.7); BASOPHIL # 0.1 TH/MM3 (0-0.2); BASOPHIL % 1.1 % (0.0-2.0); EOSINOPHIL # 0.1 TH/MM3 (0-0.4); EOSINOPHIL % 0.7 % (0.0-4.0); HEMATOCRIT 21.6 % (35.0-46.0); HEMOGLOBIN 7.3 GM/DL (11.6-15.3); LYMPHOCYTE # 2.3 TH/MM3 (1.0-4.8); MEAN CELL VOLUME 90.5 FL (80.0-100.0); MEAN CORPUSCULAR HEMOGLOBIN 30.6 PG (27.0-34.0); MEAN CORPUSCULAR HGB CONC 33.8 % (32.0-36.0); MEAN PLATELET VOLUME 9.6 FL (7.0-11.0); MONOCYTE # 0.8 TH/MM3 (0-0.9); NEUT % 71.2 % (16.0-70.0); PLATELET COUNT 451 TH/MM3 (150-450); RED BLOOD COUNT 2.39 MIL/MM3 (4.00-5.30); RED CELL DISTRIBUTION WIDTH 18.4 % (11.6-17.2); RETIC # 138.1 MIL/L (20.0-150.0); RETIC % 5.8 % (0.4-3.0); WHITE BLOOD COUNT 11.4 TH/MM3 (4.0-11.0)
[2018-03-11 22:03] LABS: ALBUMIN 3.6 GM/DL (3.4-5.0); AST (GOT) 35 U/L (15-37); BICARBONATE 26.8 MEQ/L (21.0-32.0); BLOOD UREA NITROGEN 12 MG/DL (7-18); CALCIUM 9.7 MG/DL (8.5-10.1); CHLORIDE 106 MEQ/L (98-107); CREATININE 0.89 MG/DL (0.50-1.00); GLOMERULAR FILTRATION RATE 79 ML/MIN (>89); GLUCOSE,RANDOM 83 MG/DL (74-106); SODIUM (NA) 139 MEQ/L (136-145)
[2018-03-11 22:04] LABS: ALT (GPT) 29 U/L (10-53)
[2018-03-11 22:07] LABS: ALKALINE PHOSPHATASE 135 U/L (45-117); TOTAL BILIRUBIN ADULT 1.2 MG/DL (0.2-1.0); TOTAL PROTEIN 9.8 GM/DL (6.4-8.2)
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
[2018-03-11 22:10] LABS: INTERNATIONAL NORMALIZED RATIO 1.1 RATIO; PROTHROMBIN TIME - PATIENT 10.8 SEC (9.8-11.6)
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
[2018-03-11 22:38] LABS: SICKLE CELLS 1+ (NORMAL)
[2018-03-12] VITALS (9 sets, daily range): BP systolic 93–137; BP diastolic 52–70; PULSE 65–97; RESP 14–18; TEMP 97.6–98.5; O2SAT 91–97
[2018-03-12] MEDS: SODIUM CHLOR 0.9% 1000 ML INJ 1,000 ML IV SCH ×2 (00:44→15:02)
[2018-03-12] MEDS ORDERED: ONDANSETRON HCL 4 MG/2 ML VIAL IVP PRN (00:45)
[2018-03-12] MEDS ORDERED: ACETAMINOPHEN 325 MG TAB PO PRN (00:45)
[2018-03-12] MEDS ORDERED: LACTULOSE SYRUP 20 GM/30 ML CUP PO PRN (00:45)
[2018-03-12] MEDS ORDERED: NALOXONE HCL 0.4 MG/ML AMP IV PUSH PRN (00:45)
[2018-03-12] MEDS ORDERED: MORPHINE SULFATE 4 MG/ML INJ IV PUSH PRN (00:45)
[2018-03-12] MEDS ORDERED: MAGNESIUM HYDROXIDE SUSP 30 ML CUP PO PRN (00:45)
[2018-03-12] MEDS ORDERED: SENNOSIDES 8.6 MG TAB PO PRN (00:45)
[2018-03-12] MEDS ORDERED: BISACODYL 10 MG SUPP RECTAL PRN (00:45)
[2018-03-12] MEDS ORDERED: SODIUM CHLORIDE 0.9% FLUSH 10 ML FLUSH IV FLUSH PRN (00:45)
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
[2018-03-12 03:03] LABS: BILIRUBIN, URINE NEG (NEG); BLOOD, URINE NEG (NEG); GLUCOSE,URINE NEG (NEG); KETONE, URINE NEG (NEG); MUCUS URINE FEW /lpf (OCC); NITRITE,URINE NEG (NEG); TRANSITIONAL EPI CELLS, URINE <1 /hpf; URINE COLOR LIGHT-YELLOW (YELLW/STRAW); URINE LEUKOCYTE ESTERASE TRACE (NEG)
[2018-03-12] MEDS: DOCUSATE SODIUM 50 MG/SENNA 8.6 MG TAB PO SCH ×2 (07:48→21:00)
[2018-03-12] MEDS: SODIUM CHLORIDE 0.9% FLUSH 10 ML FLUSH IV FLUSH SCH ×2 (07:48→21:00)
--- NOTE | 2018-03-12 10:22 | HHI.PR ---
Subjective Remarks Follow up for cystic mass, anemia. The patient reports continued diffuse lower abdominal pain, worse on the right side, described as constant 6-7/10 pain. Denies any nausea/vomiting. Last BM was yesterday. Denies fevers/chills. Denies any other medical complaints at this time. She has an appointment with Dr. Ty on 03/25. Objective Vitals Vital Signs Date Time Temp Pulse Resp B/P (MAP) Pulse Ox O2 Delivery O2 Flow Rate FiO2 03/12/18 08:21 98.5 71 15 106/55 (72) 95 03/12/18 04:44 98.1 97 14 114/57 (76) 97 03/12/18 02:45 98.3 70 14 117/59 (78) 96 03/12/18 02:10 69 16 122/58 (79) 95 Room Air 03/12/18 00:25 70 16 100/52 (68) 96 Room Air 03/11/18 20:59 100 03/11/18 20:48 98.8 76 16 182/86 (118) I/O 03/11/18 03/11/18 03/11/18 03/12/18 03/12/18 03/12/18 07:00 15:00 23:00 07:00 15:00 23:00 Output Total 500 ml Balance -500 ml Output Urine Total 500 ml # Voids 1 Result Diagram: 03/11/18210903/11/182109 Imaging Last Impressions Abdomen/Pelvis CT 03/11/182052 Signed Impressions: Service Date/Time: Sunday, March 11, 2018 21:17 - CONCLUSION: 1. Large cystic mass with septations in the pelvis extending into the abdomen concerning for ovarian malignancy. Surgical consultation. 2. Cholelithiasis. 3. Abnormal parenchymal density left lower lobe measuring 2.4 x 1.2 cm. PET/CT scan recommended as outpatient. Jarred Salas MD Chest X-Ray 03/11/18 0000 Signed Impressions: Service Date/Time: Sunday, March 11, 2018 21:06 - CONCLUSION: Bibasilar atelectasis. Jarred Salas MD Objective Remarks GENERAL: Thin middle aged AA female patient in NAD. SKIN: Warm and dry. HEENT: Atraumatic. Normocephalic. Pupils equal and round. Mucous membranes pink and moist. CARDIOVASCULAR: Regular rate and rhythm. RESPIRATORY: No accessory muscle use. Clear to auscultation. Breath sounds equal bilaterally. GASTROINTESTINAL: Abdomen soft, distended lower abdomen, with moderate TTP throughout bilateral lower quadrants, worse on the right. Normoactive bowel sounds x4. MUSCULOSKELETAL: Extremities without clubbing, cyanosis, or edema. No obvious deformities. NEUROLOGICAL: Awake and alert. No obvious cranial nerve deficits. Motor grossly within normal limits. Normal speech. PSYCHIATRIC: Appropriate mood and affect; insight and judgment normal. Medications and IVs Current Medications Medications (Trade) Dose Ordered Sig/Jeri Route Start Time Stop Time Status Last Admin (Morphine Inj) 4 mg Q3H PRN IV PUSH 03/12/18 00:45 Sodium Chloride 1,000 ml @ 70 mls/hr [id number] IV 03/12/18 00:44 03/12/18 00:44 (NS Flush) 2 ml UNSCH PRN IV FLUSH 03/12/18 00:45 (NS Flush) 2 ml BID IV FLUSH 03/12/18 09:00 (Tylenol) 650 mg Q4H PRN PO 03/12/18 00:45 (Zofran Inj) 4 mg Q6H PRN IVP 03/12/18 00:45 (Narcan Inj) 0.4 mg UNSCH PRN IV PUSH 03/12/18 00:45 (Mara-Colace) 1 tab BID PO 03/12/18 09:00 (Milk Of Magnesia Liq) 30 ml Q12H PRN PO 03/12/18 00:45 (Senokot) 17.2 mg Q12H PRN PO 03/12/18 00:45 (Dulcolax Supp) 10 mg DAILY PRN RECTAL 03/12/18 00:45 (Lactulose Liq) 30 ml DAILY PRN PO 03/12/18 00:45 Sodium Chloride 250 ml @ 15 mls/hr ONCE ONCE IV 03/12/18 11:45 03/13/18 04:24 UNV A/P Assessment and Plan 57-year-old female with a past medical history significant for sickle cell disease and ovarian cystic mass presents to the emergency department with increased abdominal pain and swelling. The patient was previously discharged on 02/23/18 after having interventional radiology drain her cyst and referral to oncology as an outpatient. Pelvic cystic mass: acute -Pathology of cystic fluid negative for malignant cells on 02/22/18 -CT of the abdomen/pelvis significant for large cystic mass in the pelvis measuring 20 x 12 x 17 cm -Interventional radiology consulted for repeat cyst drainage -Follow-up as an outpatient with Dr. Ty as scheduled on 03/25/18 -Continue IV Morphine prn pain Acute Normocytic Anemia: hemoccult negative on 02/22. No reported melena/ hematochezia. -Hgb dropped from 7.3 to 5.9 overnight -Will give 2u pRBC transfusion now -Monitor H&H Sickle cell disease -Patient not currently experiencing pain crisis -Continue IVF hydration -Continue to monitor DVT Prophylaxis: teds/SCDs; avoid chemoprophylaxis secondary to anemia and upcoming procedure Discharge Planning Possible discharge tomorrow if H&H stable and after cystic mass drainage performed. Attending Statement patient was seen and examined today. still with some generalized abdominal pain with some tenderness on exam. H/H trend noted. will transfuse with PRBC and monitor H/H. IR consulted for aspiration of the pelvic cyst. rest of assessment and plan as noted above. Jennifer Murillo PA-C Mar 12, 2018 10:22 Lion Nunez MD Mar 12, 2018 12:29
[2018-03-12 10:59] LABS: AUTOMATED NEUTROPHIL # 5.8 TH/MM3 (1.8-7.7); BASOPHIL # 0.1 TH/MM3 (0-0.2); BASOPHIL % 1.5 % (0.0-2.0); EOSINOPHIL # 0.1 TH/MM3 (0-0.4); EOSINOPHIL % 0.6 % (0.0-4.0); LYMPH % 19.9 % (9.0-44.0); LYMPHOCYTE # 1.6 TH/MM3 (1.0-4.8); MEAN CELL VOLUME 89.4 FL (80.0-100.0); MEAN CORPUSCULAR HEMOGLOBIN 30.8 PG (27.0-34.0); MEAN CORPUSCULAR HGB CONC 34.5 % (32.0-36.0); MEAN PLATELET VOLUME 9.6 FL (7.0-11.0); MONO % 7.9 % (0.0-8.0); MONOCYTE # 0.7 TH/MM3 (0-0.9); NEUT % 70.1 % (16.0-70.0); PLATELET COUNT 405 TH/MM3 (150-450); RED BLOOD COUNT 1.93 MIL/MM3 (4.00-5.30); RED CELL DISTRIBUTION WIDTH 17.8 % (11.6-17.2); WHITE BLOOD COUNT 8.2 TH/MM3 (4.0-11.0)
[2018-03-12 11:09] LABS: HEMATOCRIT 17.2 % (35.0-46.0); HEMOGLOBIN 5.9 GM/DL (11.6-15.3)
[2018-03-12] MEDS ORDERED: LIDOCAINE 1%/EPINEPHrine 1:100,000 SOLN 50 ML VIAL ONE (13:24)
[2018-03-12] MEDS ORDERED: LORazepam 2 MG/ML VIAL ONE (14:03)
[2018-03-12] MEDS: SODIUM CHLOR 0.9% 250 ML INJ 250 ML IV ONE ×2 (14:15→16:15)
--- NOTE | 2018-03-12 16:29 | RADRPT ---
EXAM DATE/TIME: 03/12/2018 14:20 [place] COMPARISON: No previous studies available for comparison. INDICATIONS : Pelvic fluid collection. MEDICATION(S): 1.) 75 mcg fentanyl (Sublimaze) IV 2.) 1 mg lorazepam (Ativan) IV DEVICE(S): 1.) 10 Fr Skater FLUID: Total volume of 1500 cc of brown fluid was removed. Fluid was sent for laboratory ordered studies. MEDICAL HISTORY : Sickle cell disease. SURGICAL HISTORY : Tubal ligation. ENCOUNTER: Subsequent ACUITY: 1 month PAIN SCORE: 0/10 LOCATION: pelvis PROCEDURE : 1. CT guided drainage of the pelvic cystic mass 2. Conscious sedation with continuous EKG and oximetry monitoring. The risks, benefits and alternatives to the procedure were explained and verbal and written consent w as obtained. Using automated exposure control and adjustment of the mA and/or kV according to patient size, radiation dose was kept as low as reasonably achievable to obtain optimal diagnostic quality i mages. The site was prepped in sterile fashion. Full sterile technique was used, including cap, ma sk, sterile gloves and gown and a large sterile sheet. Hand hygiene and 2% chlorhexidine and/or beta dine/alcohol prep was utilized per protocol for cutaneous antisepsis. The skin and subcutaneous tiss ues were infiltrated with local anesthetic solution. DICOM format image data is available electronic ally for review and comparison. Using CT guidance the prescribed site was localized. Drainage was performed using the prescribed cat heter. The catheter was secured with a Percu-Stay apparatus and connected to grenade suction. The patient tolerated the procedure well and there were no complications. Conscious sedation was per formed with the prescribed dosages and duration as above in the presence of an independent trained ra diology nurse to assist in the monitoring of the patient. EKG and oximetry remained stable throughou t the procedure. The patient tolerated the procedure well and there were no complications. The patient was sent to pos t anesthesia recovery in stable condition. CONCLUSION: Uncomplicated CT-guided placement of drainage catheter into a cystic pelvic mass. The mass is multilo cular and will not be fully decompressed by this or any other percutaneous procedure. Sriram Lo MD on March 12, 2018 at 16:25 Board Certified Radiologist. This report was verified electronically.
[2018-03-13 00:03] VITALS: BP 120/56; PULSE 76; RESP 17; TEMP 98.6; O2SAT 94
[2018-03-13] MEDS: SODIUM CHLOR 0.9% 1000 ML INJ 1,000 ML IV SCH (05:50)
[2018-03-13 06:11] VITALS: BP 135/72; PULSE 71; RESP 16; TEMP 98.3; O2SAT 93
[2018-03-13 07:39] VITALS: BP 123/67; PULSE 70; RESP 16; TEMP 97.5; O2SAT 94
[2018-03-13] MEDS: SODIUM CHLORIDE 0.9% FLUSH 10 ML FLUSH IV FLUSH SCH (09:00)
[2018-03-13 09:15] LABS: BASOPHIL # 0.1 TH/MM3 (0-0.2); BASOPHIL % 1.2 % (0.0-2.0); EOSINOPHIL # 0.1 TH/MM3 (0-0.4); EOSINOPHIL % 0.9 % (0.0-4.0); HEMATOCRIT 26.2 % (35.0-46.0); HEMOGLOBIN 9.2 GM/DL (11.6-15.3); LYMPH % 22.8 % (9.0-44.0); LYMPHOCYTE # 1.4 TH/MM3 (1.0-4.8); MEAN CELL VOLUME 88.5 FL (80.0-100.0); MEAN CORPUSCULAR HEMOGLOBIN 30.9 PG (27.0-34.0); MEAN CORPUSCULAR HGB CONC 34.9 % (32.0-36.0); MEAN PLATELET VOLUME 9.6 FL (7.0-11.0); MONO % 9.1 % (0.0-8.0); MONOCYTE # 0.6 TH/MM3 (0-0.9); PLATELET COUNT 366 TH/MM3 (150-450); RED BLOOD COUNT 2.97 MIL/MM3 (4.00-5.30); RED CELL DISTRIBUTION WIDTH 16.3 % (11.6-17.2); WHITE BLOOD COUNT 6.1 TH/MM3 (4.0-11.0)
[2018-03-13] MEDS: DOCUSATE SODIUM 50 MG/SENNA 8.6 MG TAB PO SCH (09:29)
[2018-03-13 09:53] LABS: BICARBONATE 26.3 MEQ/L (21.0-32.0); CALCIUM 8.9 MG/DL (8.5-10.1); CREATININE 0.64 MG/DL (0.50-1.00)
[2018-03-13 11:17] VITALS: BP 116/59; PULSE 73; RESP 16; TEMP 97.4; O2SAT 95
--- NOTE | 2018-03-13 11:27 | HHI.PR ---
Subjective Remarks Follow up for pelvic cyst. The patient is s/p drain placement by IR yesterday. RN reports 400cc output yesterday, no output documented overnight however patient reports it was emptied by night nurse, and another 100cc output this morning. The patient does not feel comfortable going home with this drain. She reports continued moderate lower abdominal pain. Denies nausea/vomiting. Denies fevers/chills. Denies any lightheadedness, dizziness, chest pain, or shortness of breath. No other medical complaints at this time. Objective Vitals Vital Signs Date Time Temp Pulse Resp B/P (MAP) Pulse Ox O2 Delivery O2 Flow Rate FiO2 03/13/18 07:39 97.5 70 16 123/67 (85) 94 03/13/18 06:11 98.3 71 16 135/72 (93) 93 03/13/18 00:03 98.6 76 17 120/56 (77) 94 03/12/18 19:45 98.0 72 18 137/70 95 03/12/18 16:21 97.6 72 16 93/53 95 03/12/18 16:03 97.7 70 16 101/53 94 03/12/18 15:10 98.2 65 18 108/54 (72) 91 I/O 03/12/18 03/12/18 03/12/18 03/13/18 03/13/18 03/13/18 06:59 14:59 22:59 06:59 14:59 22:59 Intake Total 420 ml 420 ml Output Total 500 ml 1850 ml 100 ml Balance -500 ml -1430 ml 420 ml -100 ml Packed Cells 400 ml 400 ml Blood Product IV Normal Saline Flush 20 ml 20 ml Output Urine Total 500 ml Drainage Total 1850 ml 100 ml # Voids 1 Result Diagram: 03/13/18 0836 03/13/18 0836 Imaging Last Impressions Abscess Drainage CT 03/12/18 1309 Signed Impressions: Service Date/Time: Monday, March 12, 2018 14:20 - CONCLUSION: Uncomplicated CT-guided placement of drainage catheter into a cystic pelvic mass. The mass is multilocular and will not be fully decompressed by this or any other percutaneous procedure. Sriram Lo MD Abdomen/Pelvis CT 03/11/182052 Signed Impressions: Service Date/Time: Sunday, March 11, 2018 21:17 - CONCLUSION: 1. Large cystic mass with septations in the pelvis extending into the abdomen concerning for ovarian malignancy. Surgical consultation. 2. Cholelithiasis. 3. Abnormal parenchymal density left lower lobe measuring 2.4 x 1.2 cm. PET/CT scan recommended as outpatient. Jarred Salas MD Chest X-Ray 03/11/18 0000 Signed Impressions: Service Date/Time: Sunday, March 11, 2018 21:06 - CONCLUSION: Bibasilar atelectasis. Jarred Salas MD Objective Remarks GENERAL: Thin middle aged AA female patient in NAD. SKIN: Warm and dry. HEENT: Atraumatic. Normocephalic. Pupils equal and round. Mucous membranes pink and moist. CARDIOVASCULAR: Regular rate and rhythm. RESPIRATORY: No accessory muscle use. Clear to auscultation. Breath sounds equal bilaterally. GASTROINTESTINAL: Abdomen soft, mildly distended lower abdomen, with moderate TTP throughout bilateral lower quadrants, worse on the right. Normoactive bowel sounds x4. Drain in place at lower abdomen. MUSCULOSKELETAL: Extremities without clubbing, cyanosis, or edema. No obvious deformities. NEUROLOGICAL: Awake and alert. No obvious cranial nerve deficits. Motor grossly within normal limits. Normal speech. PSYCHIATRIC: Appropriate mood and affect; insight and judgment normal. Procedures 03/12/18 - CT guided drainage of pelvic cystic mass with drain placement, done by IR Medications and IVs Current Medications Medications (Trade) Dose Ordered Sig/Jeri Route Start Time Stop Time Status Last Admin (Morphine Inj) 4 mg Q3H PRN IV PUSH 03/12/18 00:45 03/12/18 12:33 Sodium Chloride 1,000 ml @ 70 mls/hr [id number] IV 03/12/18 00:44 03/13/18 05:50 (NS Flush) 2 ml UNSCH PRN IV FLUSH 03/12/18 00:45 (NS Flush) 2 ml BID IV FLUSH 03/12/18 09:00 (Tylenol) 650 mg Q4H PRN PO 03/12/18 00:45 (Zofran Inj) 4 mg Q6H PRN IVP 03/12/18 00:45 03/12/18 18:20 (Narcan Inj) 0.4 mg UNSCH PRN IV PUSH 03/12/18 00:45 (Mara-Colace) 1 tab BID PO 03/12/18 09:00 03/13/18 09:29 (Milk Of Magnesia Liq) 30 ml Q12H PRN PO 03/12/18 00:45 (Senokot) 17.2 mg Q12H PRN PO 03/12/18 00:45 (Dulcolax Supp) 10 mg DAILY PRN RECTAL 03/12/18 00:45 (Lactulose Liq) 30 ml DAILY PRN PO 03/12/18 00:45 A/P Assessment and Plan 57-year-old female with a past medical history significant for sickle cell disease and ovarian cystic mass presents to the emergency department with increased abdominal pain and swelling. The patient was previously discharged on 02/23/18 after having interventional radiology drain her cyst and referral to oncology as an outpatient. Pelvic cystic mass: acute -Pathology of cystic fluid negative for malignant cells on 02/22/18 -CT of the abdomen/pelvis significant for large cystic mass in the pelvis measuring 20 x 12 x 17 cm -Interventional radiology consulted, performed CT guided drainage with drain placement on 03/12 -Patient continues to have large amount of output from drain and does not feel comfortable going home with drain in place -Will re-consult Dr. Ty for evaluation and recommendations, patient does also have appt scheduled on 03/25 -Continue IV Morphine prn pain Acute Normocytic Anemia: hemoccult negative on 02/22. No reported melena/ hematochezia. -Hgb dropped from 7.3 to 5.9 -S/p 2u pRBC transfusion on 03/12 -Repeat Hgb 9.2 -Continue to monitor Sickle cell disease -Patient not currently experiencing pain crisis -Continue IVF hydration -Continue to monitor DVT Prophylaxis: teds/SCDs; avoid chemoprophylaxis secondary to anemia and upcoming procedure Discharge Planning Patient with pelvic drain in place with significant output. She does not feel comfortable going home with drain in place. Await evaluation/recommendations by Dr. Ty. 1415hrs: Patient seen by Dr. Ty, recommends discharge home with drain in place. RN to educate patient on drain care. Dr. Ty office will try to get patient into the office prior to 03/25. Will discharge home. 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 Ty Attending Statement patient was seen and examined today. still with some abdominal pain- and still with some generalized abdominal tenderness on exam. had drainage of the pelvic mass. H/H trend noted. will consult [facility] Oncology. rest of assessment and plan as noted above. d/w the patient. Jennifer Murillo PA-C Mar 13, 2018 11:27 Lion Nunez MD Mar 13, 2018 11:31
--- NOTE | 2018-03-13 13:12 | PD.CONS ---
History of Present Illness Service Urologist/Oncology Consult Requested By Dr. Murillo Reason for Consult large pelvic mass Primary Care Physician No Primary Care Physician Diagnoses: (1) Abdominal cyst History of Present Illness This is a 57 year old female who was admitted to [facility] for anemia and large pelvic cyst. She was admitted for the same reason back on 02/20/18 where we met her in consult and she had the cyst drained and was to follow up with us as out patient. She states she was doing well at home until recently she started having abdominal pain and came back to the hospital for evaluation. She states she had been eating and drinking normally. She has been moving her bowels and bladder normally. She really has no other complaints besides abdominal pain and distention. I explained to her that she still has an appointment with our office on March 25 and we maybe able to move that up to March 18, as i may have a cancellation for this coming Saturday. Regardless of her appointment date, she needs to be strong enough for us to move forward with surgery. She has a drain placed so that should keep this cyst from filling back up in the interm. Review of Systems Gastrointestinal: COMPLAINS OF: Abdominal pain Except as stated in HPI: all other systems reviewed are Neg Past Family Social History Allergies: Coded Allergies: penicillin G (Unverified Allergy, Severe, 07/09/17) Past Medical History sickle cell anemia Past Surgical History tubal ligation Reported Medications per EMR Active Ordered Medications Current Medications Morphine Sulfate (Morphine Inj) 4 mg ONCE ONCE IV PUSH Last administered on at 21:09; Start 03/11/18 at 21:00; Stop 03/11/18 at 21:01; Status DC Ondansetron HCl (Zofran Inj) 4 mg ONCE ONCE IVP Last administered on at 21:09; Start 03/11/18 at 21:00; Stop 03/11/18 at 21:01; Status DC Sodium Chloride (NS Flush) 2 ml UNSCH PRN IV FLUSH FLUSH AFTER USING IV ACCESS Last administered on 03/11/18at 21:09; Start 03/11/18 at 21:00; Stop 03/12/18 at 00:53; Status DC Iohexol (Omnipaque 350 Inj) 80 ml STK-MED ONCE IVCONTRAST Last administered on 03/11/18at 21:18; Start 03/11/18 at 21:18; Stop 03/11/18 at 21:19; Status DC Morphine Sulfate (Morphine Inj) 4 mg Q3H PRN IV PUSH pain 6-10 Last administered on 03/12/18at 12:33; Start 03/12/18 at 00:45 Sodium Chloride 1,000 ml @ 70 mls/hr [id number] IV Last administered on at 05:50; Start 03/12/18 at 00:44 Sodium Chloride (NS Flush) 2 ml UNSCH PRN IV FLUSH FLUSH AFTER USING IV ACCESS ; Start 03/12/18 at 00:45 Sodium Chloride (NS Flush) 2 ml BID IV FLUSH ; Start 03/12/18 at 09:00 Acetaminophen (Tylenol) 650 mg Q4H PRN PO TEMP > 100.4; Start 03/12/18 at 00:45 Ondansetron HCl (Zofran Inj) 4 mg Q6H PRN IVP NAUSEA OR VOMITING Last administered on 03/12/18at 18:20; Start 03/12/18 at 00:45 Naloxone HCl (Narcan Inj) 0.4 mg UNSCH PRN IV PUSH SEE LABEL COMMENTS; Start at 00:45 Senna/Docusate Sodium (Mara-Colace) 1 tab BID PO Last administered on at 09:29; Start 03/12/18 at 09:00 Magnesium Hydroxide (Milk Of Magnesia Liq) 30 ml Q12H PRN PO Mild constipation ; Start 03/12/18 at 00:45 Sennosides (Senokot) 17.2 mg Q12H PRN PO Moderate constipation; Start 03/12/18 at 00:45 Bisacodyl (Dulcolax Supp) 10 mg DAILY PRN RECTAL SEVERE CONSITIPATION/ IF NPO ; Start 03/12/18 at 00:45 Lactulose (Lactulose Liq) 30 ml DAILY PRN PO SEVERE CONSITIPATION/ IF PO; Start 03/12/18 at 00:45 Sodium Chloride 250 ml @ 15 mls/hr ONCE ONCE IV Last administered on at 16:15; Start 03/12/18 at 11:45; Stop 03/13/18 at 04:24; Status DC Lidocaine/ Epinephrine (Xylocaine-Epi 1%-1:100,000 Inj) 50 ml STK-MED ONCE .ROUTE Last administered on 03/12/18at 13:24; Start 03/12/18 at 13:24; Stop at 13:25; Status DC Fentanyl Citrate (fentaNYL INJ) 100 mcg STK-MED ONCE .ROUTE Last administered on 03/12/18at 14:03; Start 03/12/18 at 14:03; Stop 03/12/18 at 14:04; Status DC Lorazepam (Ativan Inj) 2 mg STK-MED ONCE .ROUTE Last administered on 03/12/18at 14:03; Start 03/12/18 at 14:03; Stop 03/12/18 at 14:04; Status DC Family History non contributory Social History lives with her has 3 children, her son lives in [place] and her other 2 children live in [place] Physical Exam Vital Signs Vital Signs Date Time Temp Pulse Resp B/P (MAP) Pulse Ox O2 Delivery O2 Flow Rate FiO2 03/13/18 11:17 97.4 73 16 116/59 (78) 95 03/13/18 07:39 97.5 70 16 123/67 (85) 94 03/13/18 06:11 98.3 71 16 135/72 (93) 93 03/13/18 00:03 98.6 76 17 120/56 (77) 94 03/12/18 19:45 98.0 72 18 137/70 95 03/12/18 16:21 97.6 72 16 93/53 95 03/12/18 16:03 97.7 70 16 101/53 94 03/12/18 15:10 98.2 65 18 108/54 (72) 91 Physical Exam GENERAL: This is a frail patient, in no apparent distress. SKIN: No rashes, ecchymoses or lesions. Cool and dry. HEAD: Atraumatic. Normocephalic. No temporal or scalp tenderness. EYES: Pupils equal round and reactive. Extraocular motions intact. No scleral icterus. No injection or drainage. NECK: Trachea midline. CARDIOVASCULAR: Regular rate and rhythm without murmurs, gallops, or rubs. RESPIRATORY: Clear to auscultation. Breath sounds equal bilaterally. No wheezes , rales, or rhonchi. GASTROINTESTINAL: Abdomen soft, non-tender, nondistended. with drain placed bloody drainage, C/D/I dressing MUSCULOSKELETAL: Extremities without clubbing, cyanosis, or edema. No joint tenderness, effusion, or edema noted. NEUROLOGICAL: Awake and alert. Cranial nerves II through XII intact. Motor and sensory grossly within normal limits. Laboratory Laboratory Tests Test 03/13/18 08:36 White Blood Count 6.1 Red Blood Count 2.97 Hemoglobin 9.2 Hematocrit 26.2 Mean Corpuscular Volume 88.5 Mean Corpuscular Hemoglobin 30.9 Mean Corpuscular Hemoglobin Concent 34.9 Red Cell Distribution Width 16.3 Platelet Count 366 Mean Platelet Volume 9.6 Neutrophils (%) (Auto) 66.0 Lymphocytes (%) (Auto) 22.8 Monocytes (%) (Auto) 9.1 Eosinophils (%) (Auto) 0.9 Basophils (%) (Auto) 1.2 Neutrophils # (Auto) 4.0 Lymphocytes # (Auto) 1.4 Monocytes # (Auto) 0.6 Eosinophils # (Auto) 0.1 Basophils # (Auto) 0.1 CBC Comment DIFF FINAL Differential Comment Blood Urea Nitrogen 9 Creatinine 0.64 Random Glucose 90 Calcium Level 8.9 Sodium Level 142 Potassium Level 3.8 Chloride Level 109 Carbon Dioxide Level 26.3 Anion Gap 7 Estimat Glomerular Filtration Rate 115 Result Diagram: 03/13/18 0836 03/13/18 0836 Imaging Last Impressions Abscess Drainage CT 03/12/18 1309 Signed Impressions: Service Date/Time: Monday, March 12, 2018 14:20 - CONCLUSION: Uncomplicated CT-guided placement of drainage catheter into a cystic pelvic mass. The mass is multilocular and will not be fully decompressed by this or any other percutaneous procedure. Sriram Lo MD Abdomen/Pelvis CT 03/11/182052 Signed Impressions: Service Date/Time: Sunday, March 11, 2018 21:17 - CONCLUSION: 1. Large cystic mass with septations in the pelvis extending into the abdomen concerning for ovarian malignancy. Surgical consultation. 2. Cholelithiasis. 3. Abnormal parenchymal density left lower lobe measuring 2.4 x 1.2 cm. PET/CT scan recommended as outpatient. Jarred Salas MD Chest X-Ray 03/11/18 0000 Signed Impressions: Service Date/Time: Sunday, March 11, 2018 21:06 - CONCLUSION: Bibasilar atelectasis. Jarred Salas MD Assessment and Plan Problem List: (1) Abdominal cyst ICD Codes: K66.8 - Other specified disorders of peritoneum Status: Acute Plan: IR drained cyst and drain was placed will follow up in our office as out pt for consideration of surgery we will contact her from our office if her out pt appt. changes Discussed Condition With patient RN Dr. Ty Physician Attestation This consult will be discussed in detail with Dr. Ty and any further orders will follow. Arlene Friedman Mar 13, 2018 13:11
--- NOTE | 2018-03-13 14:16 | HHI.DCPOC ---
Discharge Care Plan Diagnosis: (1) pelvic cyst Goals to Promote Your Health * To prevent worsening of your condition and complications * To maintain your health at the optimal level Directions to Meet Your Goals Take your medications as prescribed Follow your dietary instruction Follow activity as directed Keep your appointments as scheduled Take your immunizations and boosters as scheduled If your symptoms worsen call your PCP, if no PCP go to Urgent Care Center or Emergency Room Smoking is Dangerous to Your Health. Avoid second hand smoke Call the 24-hour hour crisis hotline for domestic abuse at Jennifer Murillo PA-C Mar 13, 2018 2:16 pm
[2018-03-13 15:05] VITALS: BP 122/69; PULSE 62; RESP 16; TEMP 98.2; O2SAT 96
--- NOTE | 2018-03-13 15:10 | MB ---
cc: Ann Ty MD,Lion Lizama,Cathryn Evans MD DATE: 03/13/2018 REQUESTING PHYSICIAN: Dr. Lion Nunez. REASON FOR CONSULTATION: Complex predominantly cystic pelvic mass. REASON FOR ADMISSION: 1. Abdominal discomfort. 2. Symptomatic anemia. She is seen. Her findings are reviewed. She is counseled by me and examined by me in conjunction with our nurse practitioner (Arlene Friedman). I agree with her findings, assessment and plan of care. HISTORY OF PRESENT ILLNESS: This is a 57-year-old female, whom we met in hospital consultation a few weeks ago, found to have a large mass, smooth walled, predominantly cystic but with some internal septations ,some complex features. At that time, she was admitted because of abdominal distention and pain, found to be profoundly anemic with a hemoglobin approximately 5. She does have a history of sickle cell anemia. She presented again to the emergency room with some abdominal discomfort. CT scan of the abdomen and pelvis was repeated and shows a large cystic mass with septations in the pelvis extending to the abdomen, measuring 20 cm in greatest dimension. There is some posterior calcifications. She has gallstones. There is also a 2.4 cm density noted in the left lower lobe of the lung. Further imaging with PET CT scan was recommended by radiologist which is not done immediately as there is no PET scanner at [facility]. She is admitted, found to again be anemic. Her hemoglobin at time of admission was 7.3, but with hydration, it went to 5.9. She underwent aspiration of the mass and the fluid was removed was 1500 mL. It was described as brown and it does appear bloody at the drainage a collection bag that was left in place and it is serosanguineous with fairly obvious blood in the fluid. On prior admission and prior drainage, the fluid was sent for cytology and it was negative for malignant cells and present were histocytes, leukocytes and erythrocytes. No malignant cells. The fluid that was removed again yesterday, it is my understanding that has also been sent for cytology. When we saw her before and with our discussion today, we explained that they are benign growths that can occur in the pelvis and there are malignant growths, the best way to clarify it is with surgical resection and we know that these tend to reaccumulate fluid as has been shown in her case and the best way to alleviate the symptoms of fluid reaccumulation is to remove the cystic mass itself. I explained again, the reason [facility] Oncology is consulted is because we think this mass is likely arising from an ovary, although other possibilities exist ,such as a large mesenteric cyst or something arising from the gastrointestinal tract or other abnormal persistent urethral cyst or other possibilities are considered. PAST MEDICAL HISTORY: As outlined in chart, notable for sickle cell anemia, and each time she has presented she has been significantly anemic, requiring transfusion. PAST SURGICAL HISTORY: Only notable for a tubal ligation. ALLERGIES: PENICILLIN. FAMILY HISTORY: Noncontributory. MEDICATIONS: As listed in the chart. SOCIAL HISTORY: She lives with her . She has 3 children, 1 of whom lives in [place], 2 live in [place]. REVIEW OF SYSTEMS: As per history of present illness, but also noted she has no bleeding noted from anywhere else. No bleeding gums. No easy bruising, no vaginal bleeding, no bright red blood or melena stools, no hematuria. OBJECTIVE: Current H and H post-transfusion 9.2 and 26.2, white count 6.1, platelets 366. Electrolytes essentially normal. Preserved renal function, BUN and creatinine 9 and 0.64. Coags are normal with an INR of 1.1. Urinalysis preliminarily was not suspicious for infection. Plain film of the chest showed bibasilar atelectasis. Nothing else specified. PHYSICAL EXAMINATION: VITAL SIGNS: Afebrile, pulse 70-72, respirations 16-18, blood pressure 93-135/53-72, O2 saturations greater than or equal to 93%. GENERAL: She is resting comfortably in bed, no acute distress. HEENT: Pupils equal, round and reactive to light. NECK: There is no overt supraclavicular or cervical adenopathy. No carotid bruits. LUNGS: Clear. Bibasilar rales. HEART: Regular rate and rhythm. ABDOMEN: Soft. There is a drain in the mid abdomen that is draining serosanguineous fluid, but the edges of the mass cannot be clearly palpated now that the mass has been aspirated. No other mass or nodularity detected. No rebound or guarding. BACK: Nontender, no CVA tenderness. PELVIC EXAM: Again deferred until more optimal settings as we expect to see her in followup in our office. EXTREMITIES: There is some peripheral muscle wasting, but no palpable cords, no swelling. NEUROVASCULAR: Intact. Time is spend in discussion with her, reviewing the findings in her case to date. Questions were asked and answered. I encouraged her to follow up in our office so that we can get more information and pre parole counseling aide her more thoroughly about consideration of surgery. She has been encouraged to sign up for patient assistance as apparently it is my understanding that may delay some of our ability to move forward and she is encouraged to move forward with that so that we can assist her from a medical standpoint. Philosophically, she does now seem in favor of surgery, especially now that the fluid reaccumulated in a relatively short period of time. She understands it will not resolve on its own and accordingly she believes that she will be in favor of surgical intervention. We discussed, compared and contrasted laparoscopy to laparotomy. Questions were asked and answered. She expressed good understanding. ASSESSMENT: 1. Large cystic complex mass. 2. Status post drainage with serosanguineous fluid. 3. Anemia with history of sickle cell anemia, status post transfusion. 4. Extensive discussion PLAN: We would like to see her in our office this forthcoming Saturday and we have made a space for her in our office on 03/18/2018. We have asked that she be scheduled and is scheduled to come see us in our office [facility] 03/18/2018 at 8:00 a.m. This information has been shared with her and has also been put in the computer system to ensure she has that followup in her discharge planning papers. Thank you for the consultation. We will follow along in her care. MD DMITRY Block/MARYBETH , 02:06 PM , 03:09 PM
== END 2018-03-13 18:41 | disposition home or self-care (01) | DRG 392 ==
LOC: NEPC 20:44 → NEDA 22:47 → NEDH 03-12 02:47 → NEPFCDU 03-12 11:33 → OBSVTOIN 03-12 13:11
PROVIDERS: ADMIT Internal Medicine; ATTEND Internal Medicine
PROC: 0W9J30Z Drainage of Pelvic Cavity with Drainage Device, Percutaneous Approach (ICD-10-PCS; principal; 2018-03-12)
PROC: 30233N1 Transfusion of Nonautologous Red Blood Cells into Peripheral Vein, Percutaneous Approach (ICD-10-PCS; 2018-03-12)
DX: R19.00 Intra-abdominal and pelvic swelling, mass and lump, unspecified site (principal); D57.1 Sickle-cell disease without crisis; N94.89 Other specified conditions associated with female genital organs and menstrual cycle; D64.9 Anemia, unspecified; K80.20 Calculus of gallbladder without cholecystitis without obstruction; R10.30 Lower abdominal pain, unspecified; Y09 Assault by unspecified means
CPT/HCPCS: 36430; 71045; 74177; 75989; 80048; 80053; 81001; 83605; 83690; 85025; 85044; 85610; 85730; 86850; 86900; 86901; 86920; 86922; 87070; 87205; 96374; 96375; C1729; C1769; G0378; J2060; J2270; J2405; J3010; J7030; J7050; P9016; Q9967

== ENCOUNTER 2018-03-18 10:12 | Day surgery (SDC) | payer SELFPAY ==
[2018-03-18 10:30] VITALS: BP 116/52; PULSE 70; RESP 18; TEMP 97.9; O2SAT 96
== END 2018-03-18 14:09 | disposition home or self-care (01) ==
LOC: HROP 10:12 → HRIP 10:16 → HROP 14:09
PROVIDERS: ATTEND Obstetrics & Gynecology Gynecologic Oncology
DX: R19.09 Other intra-abdominal and pelvic swelling, mass and lump (principal)
CPT/HCPCS: 99213; G0463

== ENCOUNTER 2018-03-24 13:01 | Day surgery (SDC) | payer SELFPAY ==
[2018-03-24 13:49] VITALS: BP 111/60; PULSE 81; RESP 18; TEMP 98.5; O2SAT 99
--- NOTE | 2018-03-26 14:12 | RADRPT ---
EXAM DATE/TIME: 03/24/2018 00:00 [facility] COMPARISON : INDICATIONS : DRAIN REMOVAL OBJECTIVE: Temperature: 98.5 Heart Rate: 81 Blood Pressure: 111/60 Respiratory: 18 Oximetry: 99 HISTORY OF PRESENT ILLNESS: The patient underwent ct guided drainage placement for large septated cyst within the abdominal cavit y 03/12/18. The patient returned for drainage catheter removal. ASSESSMENT: There is been no significant output from the drainage catheter. PLAN: The abdominal drainage catheter was removed without difficulty. Eric Louise MD on March 26, 2018 at 13:42 Board Certified Radiologist. This report was verified electronically.
== END 2018-03-24 15:00 | disposition home or self-care (01) ==
LOC: HROP 13:01 → HRIP 13:05 → HROP 15:00
PROVIDERS: ATTEND Obstetrics & Gynecology Gynecologic Oncology
DX: Z46.82 Encounter for fitting and adjustment of non-vascular catheter (principal); R19.00 Intra-abdominal and pelvic swelling, mass and lump, unspecified site
CPT/HCPCS: 99212; G0463

== ENCOUNTER → 2018-03-27 | Outpatient (CLI) | payer OTHER ==
[~2018-03-27] MED LIST changes: +NITR100C4 PO; +ROLLER WALKER1 MI1
--- NOTE | 2018-03-27 15:12 | RADRPT ---
EXAM DATE/TIME: 03/27/2018 14:55 [facility] COMPARISON: CHEST SINGLE AP, March 11, 2018, 21:06. INDICATIONS : Pre Op MEDICAL HISTORY : None. SURGICAL HISTORY : None. ENCOUNTER: Initial ACUITY: 1 day PAIN SCORE: 0/10 LOCATION: Bilateral chest FINDINGS: Frontal and lateral views of the chest demonstrate a normal-sized cardiac silhouette. No effusion, co nsolidation, or pneumothorax is identified. Bones and soft tissues demonstrate no acute finding. Ther e is dextroscoliosis of the thoracic spine. CONCLUSION: No acute cardiopulmonary abnormality is identified. Sriram Carty MD on March 27, 2018 at 15:09 Board Certified Radiologist. This report was verified electronically.
--- NOTE | 2018-03-28 16:32 | EKG ---
Date Performed: 03/27/2018 Time Performed: 14:38:43 PTAGE: 57 years EKG: SINUS BRADYCARDIA VOLTAGE CRITERIA FOR LVH ABNORMAL ECG NO PREVIOUS TRACING DOCTOR: Luigi Egan Interpretating Date/Time 03/28/2018 16:21:39
== END ==
LOC: CPRE 11:32
PROVIDERS: ATTEND Obstetrics & Gynecology Gynecologic Oncology
DX: Z01.810 Encounter for preprocedural cardiovascular examination (principal); Z01.811 Encounter for preprocedural respiratory examination; R19.09 Other intra-abdominal and pelvic swelling, mass and lump; R00.1 Bradycardia, unspecified
CPT/HCPCS: 71046; 93005

== ENCOUNTER 2018-03-31 07:27 | Inpatient (IN) | payer OTHER ==
[~2018-03-31] VITALS: Ht 162.6 cm; Wt 43.8 kg
[~2018-03-31 07:27] MED LIST changes: -NITR100C4 PO; -ROLLER WALKER1 MI1
[2018-03-31] MEDS ORDERED: METOPROLOL TARTRATE 25 MG TAB PO PRN (08:30)
[2018-03-31] MEDS ORDERED: POVIDONE IODINE 5% (ANTISEPSIS KIT) 4 APPLICATIONS EACH NARE PRN (08:30)
[2018-03-31] MEDS ORDERED: INSULIN HUMAN REGULAR 1,000 UNITS/10 ML VIAL SQ PRN (08:30)
[2018-03-31] MEDS ORDERED: CHLORHEXIDINE GLUCONATE 2 % 1 PACK (2 CLOTHS) TOPICAL PRN (08:30)
[2018-03-31] MEDS ORDERED: LACTATED RINGER'S 1000 ML IV PRN (08:30)
[2018-03-31] MEDS ORDERED: HEPARIN SODIUM - SQ 10,000 UNITS/ML VIAL SQ SCH (08:30)
[2018-03-31] MEDS ORDERED: SODIUM CHLORID 0.9% 500 ML IV PRN (08:30)
[2018-03-31] MEDS ORDERED: metroNIDAZOLE 500 MG INJ 100 ML IV ONE (10:34)
[2018-03-31] MEDS ORDERED: LEVOFLOXACIN 500 MG PREMIX INJ 100 ML IV ONE (10:34)
[2018-03-31] MEDS ORDERED: ACETAMINOPHEN 1000 MG/100 ML 100 ML IV ONE (10:38)
[2018-03-31] MEDS ORDERED: SUGAMMADEX SODIUM 200 MG/2 ML VIAL IV PUSH ONE (10:39)
[2018-03-31] MEDS ORDERED: METRONIDAZOLE 500 MG/100 ML ISONTONIC SOLN IV SCH (10:45)
[2018-03-31] MEDS ORDERED: LEVOFLOXACIN 500 MG PREMIX INJ 100 ML IV SCH (10:45)
[2018-03-31] MEDS ORDERED: LIDOCAINE HCL 1% PF 5 ML SYRINGE OTHER ONE (12:00)
[2018-03-31] MEDS ORDERED: ROCURONIUM INJ 50 MG/5 ML SYRINGE IV PUSH ONE (12:00)
[2018-03-31] MEDS ORDERED: ONDANSETRON HCL 4 MG/2 ML VIAL IV ONE (12:00)
[2018-03-31] MEDS ORDERED: PROPOFOL 200 MG/20 ML AMP IV ONE (12:00)
[2018-03-31] MEDS ORDERED: DEXAMETHASONE SOD PHOS 4 MG/ML VIAL IV ONE (12:00)
[2018-03-31] MEDS ORDERED: GLYCOPYRROLATE 1 MG/5 ML SYRINGE IV PUSH ONE (12:00)
[2018-03-31 12:52] LABS: INTERNATIONAL NORMALIZED RATIO 1.2 RATIO; PROTHROMBIN TIME - PATIENT 11.8 SEC (9.8-11.6)
[2018-03-31] MEDS ORDERED: METHYLENE BLUE 10 MG/ML VIAL OTHER ONE (13:16)
[2018-03-31] MEDS ORDERED: D5-1/2 NS + KCL 20 MEQ INJ 1,000 ML IV SCH (15:02)
[2018-03-31] MEDS ORDERED: SODIUM CHLORIDE 0.9% FLUSH 10 ML FLUSH IV FLUSH PRN ×3 (15:15)
[2018-03-31] MEDS ORDERED: NALOXONE HCL 0.4 MG/ML AMP IV PUSH PRN (15:15)
[2018-03-31] MEDS ORDERED: LORazepam 0.5 MG TAB PO PRN (15:15)
[2018-03-31] MEDS ORDERED: diphenhydrAMINE HCL 25 MG CAP PO PRN (15:15)
[2018-03-31] MEDS ORDERED: DO NOT ADM ANY ANTICOAGULANT DRUGS PRN (15:41)
[2018-03-31] MEDS ORDERED: *morphine SULFATE 4 MG/ML PERIprocedure ONLY ONE ×3 (15:51→16:13)
[2018-03-31] MEDS: KETOROLAC TROMETHAMINE 30 MG/ML (IVP) VIAL IVP SCH ×2 (16:01→22:26)
[2018-03-31] MEDS ORDERED: *HYDROmorphone PF 0.5 MG/0.5 ML PERIprocedure ONLY ONE ×2 (16:32→17:42)
[2018-03-31] MEDS: DEXT 5%-NACL 0.45% 1000 ML INJ 1,000 ML IV SCH (16:50)
[2018-03-31] MEDS: MORPHINE SULFATE 30 MG/30 ML PCA IV SCH (16:55)
[2018-03-31 18:01] VITALS: BP 158/71; PULSE 56; RESP 18; TEMP 97.4; O2SAT 99
[2018-03-31 20:00] VITALS: PULSE 54
[2018-03-31] MEDS ORDERED: SODIUM CHLORIDE 0.9% FLUSH 10 ML FLUSH IV FLUSH SCH ×2 (21:00)
[2018-03-31] MEDS: SODIUM CHLORIDE 0.9% FLUSH 10 ML FLUSH IV FLUSH SCH (21:00)
[2018-03-31] MEDS: DOCUSATE SODIUM 50 MG/SENNA 8.6 MG TAB PO SCH (21:00)
[2018-03-31] MEDS: PCA - TOTAL MG MORPHINE DELIVERED PER SHIFT SCH (22:00)
[2018-03-31 22:10] VITALS: BP 144/78; PULSE 73; RESP 18; TEMP 98.1; O2SAT 100
[2018-04-01] VITALS (9 sets, daily range): BP systolic 110–142; BP diastolic 51–73; PULSE 55–66; RESP 16–18; TEMP 98.4–99; O2SAT 97–100
[2018-04-01] MEDS: KETOROLAC TROMETHAMINE 30 MG/ML (IVP) VIAL IVP SCH ×4 (03:20→22:22)
[2018-04-01] MEDS: ONDANSETRON HCL 4 MG/2 ML VIAL IVP PRN ×2 (03:20→13:41)
[2018-04-01] MEDS: DEXT 5%-NACL 0.45% 1000 ML INJ 1,000 ML IV SCH ×3 (03:21→20:52)
[2018-04-01] MEDS: PCA - TOTAL MG MORPHINE DELIVERED PER SHIFT SCH ×3 (05:41→22:28)
[2018-04-01 06:56] LABS: AUTOMATED NEUTROPHIL # 12.1 TH/MM3 (1.8-7.7); BASOPHIL % 0.2 % (0.0-2.0); HEMATOCRIT 30.6 % (35.0-46.0); HEMOGLOBIN 10.2 GM/DL (11.6-15.3); LYMPHOCYTE # 0.7 TH/MM3 (1.0-4.8); MEAN CELL VOLUME 89.9 FL (80.0-100.0); MEAN CORPUSCULAR HEMOGLOBIN 30.1 PG (27.0-34.0); MEAN CORPUSCULAR HGB CONC 33.5 % (32.0-36.0); MEAN PLATELET VOLUME 10.6 FL (7.0-11.0); MONO % 6.8 % (0.0-8.0); MONOCYTE # 0.9 TH/MM3 (0-0.9); PLATELET COUNT 214 TH/MM3 (150-450); RED CELL DISTRIBUTION WIDTH 15.6 % (11.6-17.2); WHITE BLOOD COUNT 13.7 TH/MM3 (4.0-11.0)
[2018-04-01 07:04] LABS: BICARBONATE 26.2 MEQ/L (21.0-32.0); CALCIUM 8.7 MG/DL (8.5-10.1); CREATININE 0.88 MG/DL (0.50-1.00)
--- NOTE | 2018-04-01 07:28 | HHI.PR ---
Subjective . no new c/o, discomfort c/w surgery Objective . afeb, vss i/o 2150/4600 h/h 10.2/30.6, plts 214, fibrinogen 181 lytes pending alert, nad lungs cta, mild basilar rales, rrr abd soft, clean, dry, sports physician no bleeding ext nt, scds Assessment/Plan . pod#1 doing well in early post-op period findings, preliminary path reviewed Q&A, she understands oob, spirometry, continue senior staff consultant and ledbetter Ann Ty MD April 01, 2018 07:28
[2018-04-01] MEDS: DOCUSATE SODIUM 50 MG/SENNA 8.6 MG TAB PO SCH ×2 (08:49→20:45)
[2018-04-01] MEDS: SODIUM CHLORIDE 0.9% FLUSH 10 ML FLUSH IV FLUSH SCH ×2 (08:49→20:45)
[2018-04-01] MEDS: NITROFURANTOIN MONOHYD MACROCR 100 MG CAP PO SCH (08:49)
--- NOTE | 2018-04-01 09:16 | MP ---
cc: Ann Ty MD, Ruby Anne E MD DATE OF OPERATION: 03/31/2018 DATE OF PROCEDURE: 03/31/2018 PREOPERATIVE DIAGNOSIS: Large complex pelvic mass. POSTOPERATIVE DIAGNOSES: 1. Large complex pelvic mass. 2. Extensive intraperitoneal adhesions. PROCEDURE PERFORMED: Exploratory laparotomy, resection of pelvic mass (of uncertain but probable right ovarian origin), partial omentectomy, hysterectomy, bilateral salpingo-oophorectomy, extensive lysis of adhesions, bilateral ureterolysis. SURGEON: Ann Ty MD CENTRIFUGAL MACHINE TENDER: Fela licensed physical therapist assistant. ANESTHESIA: General endotracheal anesthesia. ESTIMATED BLOOD LOSS: 300 mL. IV FLUIDS: 1700 mL. URINE OUTPUT: 1000 mL. PATIENT HISTORY: This is a 57-year-old female. We met initially as an inpatient consultation for a large complex pelvic mass. She was uncertain initially whether or not she wanted to consider surgery. It had a smooth border. She was interested in symptomatic relief. It favored a benign process. She was counseled extensively and underwent drainage of the fluid. The fluid was hemorrhagic in nature, but the cytology was negative. However, shortly thereafter, within a few weeks, she returned to the emergency room. The capsule had reaccumulated fluid. She was again counseled regarding options. A drain was placed, which palliated her symptoms and continued to drain hemorrhagic-appearing fluid. Also in her history is a sickle cell trait and she has presented to the hospital anemic on both occasions with a hemoglobin in the 5-6 range requiring transfusion. She has been counseled again regarding the potential definitive benefits of surgery, and she is now in favor of surgery. She was counseled also in our office regarding these recommendations. She was seen again in the preop holding area where the findings and plan of care were again discussed. Her questions were asked and answered. She expressed good understanding and wants to move forward with surgery. FINDINGS: Upon exploration of the peritoneal cavity, a large mass occupied the pelvis, extended above the umbilicus. Despite recent drainage it had reaccumulated a large volume of fluid. It was densely adherent to all surrounding structures. It was adherent to the anterior abdominal wall. A portion of the omentum was fixed to the mass. The mass was against the mesentery of the small bowel and colon. It was against the pelvic sidewalls and densely adherent to the uterus and most densely attached to the bladder. Once the mass was removed, it was sent for frozen section analysis. It appeared to be benign. The origin of the mass remains uncertain. Anatomically, it may have arisen from the right ovary, but it may have arisen as a urachal mass from the abdominal wall, possibly on the external surface of the bladder or less likely but possibly a mesenteric inclusion cyst. The abdomen was normal in that the liver, diaphragm edges were smooth. The large and small bowel and adjacent mesentery despite the adhesions, otherwise appeared normal. There was minimal intraperitoneal fluid. No intraperitoneal blood. No adenopathy. No intraperitoneal implants. STATEMENT OF COMPLEXITY/MODIFIER: The complexity and duration of this case was markedly increased due to significant extensive intraperitoneal adhesions. It was estimated that a total of 90 minutes of surgical time were spent lysing adhesions to gain safe access to the peritoneal cavity to mobilize the mass, resect the mass and to establish normal anatomy. Modifier should be applied accordingly. DESCRIPTION OF PROCEDURE: She was taken to the operating room and placed in dorsal lithotomy position, after general endotracheal anesthesia was administered. Timeout was undertaken. She was identified by site recognition and hospital ID bracelet and the proposed procedure was reviewed and confirmed. She was carefully positioned in Dvaid stirrups. Her arms were secured out to the sides. She has fixation of her left elbow in a roughly 90 degree angle. The arm could not be straightened out, but of the shoulder had good mobility so the arm was placed out to the side and the hand was elevated above the shoulder level and packed and secured without tension or malalignment. She was prepped and draped in sterile fashion. Duncan catheter placed. Change of sterile gloves was undertaken. We completed draping in anticipation of laparotomy. Midline incision was made from the symphysis to the umbilicus, carried down to the level of the fascia. The fascia was entered. The rectus muscles were in the midline and the peritoneal cavity was entered. Peritoneal washings were obtained for cytology. Sharp dissection was used to free adhesions from the mass against the anterior abdominal wall. Noted next was omentum densely adherent to the mass. Partial omentectomy was performed as the vascular pedicles were isolated, clamped, cut, and suture ligated with 2-0 Vicryl sutures. Sharp and blunt dissection were then used at the apex of the mass to free the mass from the mesentery of the small bowel and to free loops of small bowel from the surface of the mass. Laterally, sharp dissection and blunt dissection was used to mobilize the mass from its lateral attachments. Palpation allowed identification of the ureter initially and then blunt and sharp dissection were used to open the peritoneum and to ensure that the ureter was displaced posteriorly away from the mass, and this was carried out bilaterally, as there was continued lysis of adhesions. At this point, a small uterus was visible posterior to the mass and the uterus was displaced posteriorly in the cul-de-sac toward the rectosigmoid colon. There was a dense attachment between the uterus and this ovary that was clamped and cut. The most dense attachments remained. It was difficult initially to decipher the wall of the mass from the wall of the bladder, as all structures were dilated and appeared to be contiguous. A plane was identified that allowed separation of the mass. The remaining tissue turned out to be bladder, which was pulled up well above the pelvis, almost to the level of the umbilicus, markedly edematous and stretched out from its normal position. The remaining attachments were freed with sharp dissection, the mass was removed and sent for frozen section analysis, which showed benign inflammatory changes, no evidence of malignancy. Now, the Bookwalter retractor and lap pads were used to assist in surgical exposure. The left round ligament was identified, doubly suture ligated, and transected. The anterior and posterior leaves of the broad ligament were opened. The left ureter had already been identified and mobilized, as a left infundibulopelvic ligament was isolated, the intervening peritoneum was opened. The infundibulopelvic ligament was doubly clamped, cut, and doubly suture ligated. The vesicouterine peritoneum was dissected off the lower uterine segment and cervix on the left side, and the posterior peritoneum was opened and the uterine vessels were skeletonized. Attention was directed toward the right side where the right round ligament was isolated, and doubly suture ligated and transected. The anterior and posterior leaves of the broad ligament were opened. The infundibulopelvic ligament was isolated. The intervening peritoneum was opened. The ureter was further mobilized posteriorly as the infundibulopelvic ligament was isolated, doubly clamped, cut, and suture ligated. Posterior peritoneum opened along the left side of the uterus and cervix and the left vesicouterine peritoneum dissected off the lower uterine segment and cervix and the uterine vessels were skeletonized. Now, the uterine vessels were clamped bilaterally, cut, suture ligated and following along the right side, the right cardinal, paracervical and uterosacral ligaments were isolated, clamped, cut, and suture ligated in stepwise fashion. Then, on the left side, the left uterine vessels were transected and suture ligated and then the cardinal, paracervical and uterosacral ligaments were isolated, clamped, cut, and suture ligated in a stepwise fashion until curved Quiroz clamps could be placed below the cervix at the lateral vaginal angles. Sharp dissection was used to separate the cervix from the upper vagina. The specimen was inspected. The entire cervix was noted to be removed. The specimen included uterus, cervix, left tube and ovary and what appeared to be some residual right tube and ovary tissue. Vaginal cuff was closed with interrupted [id number] sutures. Lateral edges were secured to the uterosacral ligament and posterior peritoneum, tied securely. Interrupted [id number]-[id number] were carried across the vaginal apex, which rendered it well-supported, completely hemostatic. The pelvis was thoroughly irrigated. Small bleeders were made hemostatic with bipolar cautery. Next, the bladder was filled with saline dyed with methylene blue. Large volume between 500 and 600 mL were instilled which dilated the bladder and indeed confirmed that the abnormal-appearing tissue was in fact a bladder that had been markedly stretched out due to its adherence to this mass. There were no defects in the bladder. There was no visible blue and certainly no extravasation of dye, but there were a couple of areas where the adjacent adipose tissue and peritoneum were thinned out overlying the bladder and these were reinforced with running 2-0 Vicryl sutures in 2 different areas and the bladder was drained. Pelvis was again thoroughly irrigated. All sites noted to be satisfactorily hemostatic. Good peristalsis of ureters bilaterally. Hemostatic Surgicel placed across the vaginal cuff and in the paravesical spaces that had been dissected. As the pathology came back benign, anatomy in the remainder of the abdomen and pelvis were explored with findings as described above, and it was felt that all reasonable surgical objectives had been completed. Accordingly the Bookwalter retractor and lap pads were removed. Visual and manual inspection confirmed there were no remaining foreign objects in the peritoneal cavity. Preliminary counts were correct and attention was directed toward closing. Abdominal wall was closed with a running looped PDS in a modified Smead-Hernandez fashion meeting in the midpoint where the sutures were tied, the knot was buried below the level of the fascia. The abdominal wall was irrigated, 2-0 Vicryl sutures were used to reapproximate Victorina's fascia and the skin edges were closed with a running 3-0 subcuticular closure, reinforced with Steri-Strips and a dry sterile dressing. There were no remaining foreign objects in the vagina. Final counts were correct. She was returned to dorsal supine position pending reversal of anesthesia when I left operating room to precede her to the postanesthesia care unit. MD DMITRY Llanes/MARYBETH , 08:31 AM , 09:15 AM
[2018-04-02] VITALS (11 sets, daily range): BP systolic 131–167; BP diastolic 70–83; PULSE 61–74; RESP 16–18; TEMP 97.8–98.7; O2SAT 97–99
[2018-04-02] MEDS: KETOROLAC TROMETHAMINE 30 MG/ML (IVP) VIAL IVP SCH ×4 (04:19→21:03)
[2018-04-02] MEDS: PCA - TOTAL MG MORPHINE DELIVERED PER SHIFT SCH ×3 (05:45→21:03)
[2018-04-02] MEDS: DEXT 5%-NACL 0.45% 1000 ML INJ 1,000 ML IV SCH ×2 (07:02→17:02)
[2018-04-02] MEDS: DOCUSATE SODIUM 50 MG/SENNA 8.6 MG TAB PO SCH ×2 (08:47→21:03)
[2018-04-02] MEDS: NITROFURANTOIN MONOHYD MACROCR 100 MG CAP PO SCH (08:47)
[2018-04-02] MEDS: SODIUM CHLORIDE 0.9% FLUSH 10 ML FLUSH IV FLUSH SCH ×2 (08:48→21:03)
--- NOTE | 2018-04-02 09:10 | EKG ---
Date Performed: 04/02/2018 Time Performed: 06:53:22 PTAGE: 57 years EKG: Sinus rhythm with borderline 1st degree A-V block Borderline ECG PREVIOUS TRACING : 03/27/2018 14.38 DOCTOR: Cecilio Kim Interpretating Date/Time 04/02/2018 09:07:54
--- NOTE | 2018-04-02 09:14 | HHI.PR ---
Subjective . no new c/o discomfort c/w surgery Objective . afeb, vss alert, nad lungs cta, rrr abd soft, nd, nt sales support consultant no bleeding ext nt, scds uop > 30 ml/hr Assessment/Plan . pod # 2 doing well, was oob to chair yesterday, not yet ambulation minimal appetite, tolerating clears - adat findings at surgery again discussed, reason for indwelling ledbetter 7- 10 days reviewed ambulate, continue ledbetter & jewel cupping machine operator at this time Ann Ty MD April 02, 2018 09:14
[2018-04-02] MEDS: MORPHINE SULFATE 30 MG/30 ML PCA IV SCH (13:40)
[2018-04-03] VITALS (11 sets, daily range): BP systolic 125–178; BP diastolic 68–79; PULSE 64–79; RESP 15–21; TEMP 98.4–99.5; O2SAT 96–99
[2018-04-03] MEDS: KETOROLAC TROMETHAMINE 30 MG/ML (IVP) VIAL IVP SCH ×4 (04:39→21:07)
[2018-04-03] MEDS: DEXT 5%-NACL 0.45% 1000 ML INJ 1,000 ML IV SCH ×3 (04:39→21:07)
[2018-04-03] MEDS: PCA - TOTAL MG MORPHINE DELIVERED PER SHIFT SCH (06:36)
--- NOTE | 2018-04-03 07:15 | HHI.PR ---
Subjective . c/o gas pains and cramps, no flatus. nausea with eating last night better this morning Objective . afeb,vss uop adequate >30 ml/hr alert, nad cta, rrr abd soft slight distention, no rebound or guarding dressing clean and dry window display designer no bleeding ext nt scds Assessment/Plan . pod #3, stable with ongoing post-op recovery Q&A, work toward hopeful d/c tomorrow increase oob, ambulation & spirometry d/c chief digital media officer, iv to kvo change ledbetter to leg bag and teach self care for home use. Ann Ty MD April 03, 2018 07:15
[2018-04-03] MEDS: NITROFURANTOIN MONOHYD MACROCR 100 MG CAP PO SCH (09:26)
[2018-04-03] MEDS: SODIUM CHLORIDE 0.9% FLUSH 10 ML FLUSH IV FLUSH SCH ×2 (09:26→21:07)
[2018-04-03] MEDS: DOCUSATE SODIUM 50 MG/SENNA 8.6 MG TAB PO SCH ×2 (09:26→21:07)
[2018-04-03] MEDS: oxyCODONE/ACETAMINOPHEN 5 MG/325 MG TAB PO PRN ×2 (14:16→21:15)
[2018-04-04] VITALS (7 sets, daily range): BP systolic 161–175; BP diastolic 72–81; PULSE 59–79; RESP 18–22; TEMP 97.2–99; O2SAT 96–99
[2018-04-04] MEDS: KETOROLAC TROMETHAMINE 30 MG/ML (IVP) VIAL IVP SCH ×2 (03:53→10:10)
[2018-04-04] MEDS ORDERED: NORC5TAB PO (06:51)
--- NOTE | 2018-04-04 07:03 | MD ---
cc: Ann Ty MD,Cathryn Evans MD DATE OF DISCHARGE: 04/04/2018 PROCEDURE: 03/31/2018, exploratory laparotomy, resection of large pelvic mass, partial omentectomy, total abdominal hysterectomy, bilateral salpingo-oophorectomy, extensive lysis of adhesions. PATHOLOGY: Large benign endometrioma, also noted some leiomyomas chronic inflammation endosalpingiosis, no evidence of malignancy. HOSPITAL COURSE: She improved gradually over her hospital recovery such that by today postoperative day #4, she was tolerating oral intake. Duncan catheter is left indwelling due to surgical repair adjacent to the bladder. She had no nausea or vomiting overnight. Some flatus. She has been out of bed in a hair. She has been ambulating and she is hemodynamically stable. PHYSICAL EXAMINATION: Afebrile, pulse 64-78, respirations 16-22, blood pressure 125 to 163/68, O2 saturations 99%. GENERAL: She is alert. LUNGS: Lungs are clear. CARDIOVASCULAR: Regular rate and rhythm. ABDOMEN: The abdominal incision is clean and dry. Steri-Strips are intact. Abdomen is nontender. GYNECOLOGIC: No bleeding. EXTREMITIES: Nontender. ASSESSMENT: Postoperative day number 4, progressing satisfactorily in the postoperative period. She has been switched to oral pain medication and findings at surgery, preliminary pathology discussed and reviewed, activities and restrictions again discussed. Questions were asked and answered. She expressed good understanding. PLAN: I believe she will meet criteria for discharge to home. She will have a prescription for Percocet for pain. She is to resume her prior medications. She is to contact our office to have a followup in 1 week for a postoperative check and to remove the Duncan catheter. She will be on Macrodantin once daily as long as she has the indwelling Duncan catheter and she is to call our office should she have any questions or problems between now and the time of scheduled followup. Ann Ty MD KLM/GUME , 06:48 AM , 07:02 AM
[2018-04-04] MEDS: DEXT 5%-NACL 0.45% 1000 ML INJ 1,000 ML IV SCH ×2 (09:02→21:48)
[2018-04-04] MEDS: SODIUM CHLORIDE 0.9% FLUSH 10 ML FLUSH IV FLUSH SCH ×2 (10:08→21:52)
[2018-04-04] MEDS: DOCUSATE SODIUM 50 MG/SENNA 8.6 MG TAB PO SCH ×2 (10:09→21:44)
[2018-04-04] MEDS: NITROFURANTOIN MONOHYD MACROCR 100 MG CAP PO SCH (10:09)
[2018-04-04] MEDS: oxyCODONE/ACETAMINOPHEN 5 MG/325 MG TAB PO PRN (11:37)
[2018-04-05] VITALS (12 sets, daily range): BP systolic 126–154; BP diastolic 62–79; PULSE 55–92; RESP 14–18; TEMP 96.4–99.8; O2SAT 96–99
[2018-04-05] MEDS: DEXT 5%-NACL 0.45% 1000 ML INJ 1,000 ML IV SCH ×2 (06:05→14:38)
[2018-04-05] MEDS: SODIUM CHLORIDE 0.9% FLUSH 10 ML FLUSH IV FLUSH SCH ×2 (08:10→22:16)
[2018-04-05] MEDS: ONDANSETRON HCL 4 MG/2 ML VIAL IVP PRN (08:24)
[2018-04-05] MEDS: NITROFURANTOIN MONOHYD MACROCR 100 MG CAP PO SCH (08:25)
[2018-04-05] MEDS: DOCUSATE SODIUM 50 MG/SENNA 8.6 MG TAB PO SCH ×2 (08:25→22:16)
[2018-04-05] MEDS ORDERED: MAGNESIUM HYDROXIDE SUSP 30 ML CUP PO ONE (11:45)
[2018-04-05] MEDS ORDERED: DOCUSATE SODIUM 50 MG/SENNA 8.6 MG TAB PO ONE (11:45)
[2018-04-05] MEDS ORDERED: ROLLER WALKER1 MI1 (16:34)
[2018-04-05] MEDS ORDERED: NITR100C4 PO (16:38)
--- NOTE | 2018-04-05 16:41 | HHI.PR ---
Subjective Remarks Patient says she is feeling all right. Reports some nausea today but no vomiting. Denies any chest pain or shortness of breath. Still feeling very weak, does not feel strong enough to go home at this time. Objective Vital Signs Date Time Temp Pulse Resp B/P (MAP) Pulse Ox O2 Delivery O2 Flow Rate FiO2 04/05/18 16:05 98.8 64 18 140/66 (90) 96 04/05/18 11:14 96.4 65 18 134/72 (92) 99 04/05/18 08:29 99 Room Air 04/05/18 08:08 98.7 68 18 145/71 (95) 99 04/05/18 07:46 98.7 75 16 154/73 (100) 98 04/05/18 07:00 70 04/05/18 04:00 99.8 73 14 145/79 (101) 98 04/05/18 04:00 66 04/05/18 00:44 99.5 74 14 139/62 (87) 99 04/05/18 00:00 70 04/04/18 20:00 98.5 64 20 168/76 (106) 98 04/04/18 20:00 62 04/04/18 20:00 Room Air 04/04/18 17:54 97.7 59 19 175/81 (112) 96 I/O 04/04/18 04/04/18 04/04/18 04/05/18 04/05/18 04/05/18 07:00 15:00 23:00 07:00 15:00 23:00 Intake Total 400 ml 480 ml Output Total 700 ml 1950 ml Balance -300 ml -1470 ml Intake Oral 400 ml 480 ml Output Urine Total 700 ml 1950 ml Result Diagram: 04/01/1817 04/01/18 0519 Objective Remarks GENERAL: Patient sitting up in bed. Somnolent, wakes up for exam. SKIN: Warm and dry. HEAD: Normocephalic. EYES: No scleral icterus. No injection or drainage. NECK: Supple, trachea midline. No JVD. CARDIOVASCULAR: Regular rate and rhythm without murmurs, gallops, or rubs. RESPIRATORY: Breath sounds equal bilaterally. No accessory muscle use. GASTROINTESTINAL: Abdomen soft, non-tender, nondistended. Midline incision with Steri-Strips intact. MUSCULOSKELETAL: No cyanosis, or edema. BACK: Nontender without obvious deformity. No CVA tenderness. A/P Assessment and Plan //Hysterectomy Postoperative day number 5 //Benign endometrioma. //Generalized weakness -PT continues to follow and recommends SNF. Patient continues very weak. = Add ENLIVE, out of bed recliner for several hours a day. Appreciate PT efforts. Hopefully discharge tomorrow if stable. =will continue with Duncan on discharge as per surgical recommendations. Will continue on Macrodantin until fully removed.. Discharge Planning Plan discharge in 1 to days when strong enough. Continue to work with PT. Appreciate assistance. We will need to continue with Duncan, as well as Macrobid prophylaxis until follow-up with oncology as outpatient. Kyree Mahoney MD April 05, 2018 16:41
[2018-04-05] MEDS: oxyCODONE/ACETAMINOPHEN 5 MG/325 MG TAB PO PRN (18:24)
[2018-04-06] VITALS (9 sets, daily range): BP systolic 106–138; BP diastolic 59–69; PULSE 68–80; RESP 18; TEMP 96.3–99.1; O2SAT 97–99
[2018-04-06] MEDS: DEXT 5%-NACL 0.45% 1000 ML INJ 1,000 ML IV SCH ×3 (00:46→19:32)
[2018-04-06 07:54] LABS: AUTOMATED NEUTROPHIL # 4.2 TH/MM3 (1.8-7.7); BASOPHIL # 0.1 TH/MM3 (0-0.2); BASOPHIL % 1.4 % (0.0-2.0); EOSINOPHIL # 0.3 TH/MM3 (0-0.4); EOSINOPHIL % 4.8 % (0.0-4.0); HEMATOCRIT 27.7 % (35.0-46.0); HEMOGLOBIN 9.2 GM/DL (11.6-15.3); LYMPH % 26.1 % (9.0-44.0); LYMPHOCYTE # 1.9 TH/MM3 (1.0-4.8); MEAN CELL VOLUME 89.8 FL (80.0-100.0); MEAN CORPUSCULAR HGB CONC 33.4 % (32.0-36.0); MEAN PLATELET VOLUME 10.8 FL (7.0-11.0); MONO % 9.8 % (0.0-8.0); MONOCYTE # 0.7 TH/MM3 (0-0.9); NEUT % 57.9 % (16.0-70.0); PLATELET COUNT 221 TH/MM3 (150-450); RED BLOOD COUNT 3.08 MIL/MM3 (4.00-5.30); RED CELL DISTRIBUTION WIDTH 14.6 % (11.6-17.2); WHITE BLOOD COUNT 7.3 TH/MM3 (4.0-11.0)
[2018-04-06 07:58] LABS: ALBUMIN 2.5 GM/DL (3.4-5.0); BICARBONATE 28.7 MEQ/L (21.0-32.0); CREATININE 0.57 MG/DL (0.50-1.00); MAGNESIUM 2.1 MG/DL (1.5-2.5)
[2018-04-06 07:59] LABS: PHOSPHORUS 3.8 MG/DL (2.5-4.9)
[2018-04-06] MEDS: SODIUM CHLORIDE 0.9% FLUSH 10 ML FLUSH IV FLUSH SCH ×2 (09:09→21:19)
[2018-04-06] MEDS: DOCUSATE SODIUM 50 MG/SENNA 8.6 MG TAB PO SCH ×2 (09:09→21:16)
[2018-04-06] MEDS: NITROFURANTOIN MONOHYD MACROCR 100 MG CAP PO SCH (09:09)
[2018-04-06] MEDS: MEGESTROL ACETATE 40 MG TAB PO SCH ×2 (13:54→21:15)
--- NOTE | 2018-04-06 18:01 | HHI.PR ---
Subjective Remarks Patient says she is feeling a little better today. Denies any chest pain or shortness of breath. Denies any nausea or vomiting. Says she is feeling stronger. She is not sure she can get up the 12 steps to her house. Objective Vital Signs Date Time Temp Pulse Resp B/P (MAP) Pulse Ox O2 Delivery O2 Flow Rate FiO2 04/06/18 16:13 97.2 73 18 124/60 (81) 99 04/06/18 15:00 80 04/06/18 12:11 96.6 75 18 116/63 (80) 99 04/06/18 11:00 73 04/06/18 09:19 97 Room Air 04/06/18 09:03 96.3 80 18 106/59 (75) 97 04/06/18 07:00 74 04/05/18 23:07 98.8 92 16 126/75 (92) 99 04/05/18 22:12 98.6 55 18 141/65 (90) 99 04/05/18 20:00 Room Air 21 I/O 04/05/18 04/05/18 04/05/18 04/06/18 04/06/18 04/06/18 07:00 15:00 23:00 07:00 15:00 23:00 Intake Total 480 ml 720 ml 1330 ml Output Total 1950 ml 2000 ml 750 ml Balance -1470 ml -1280 ml 580 ml Intake Oral 480 ml 720 ml 480 ml IV Total 850 ml Output Urine Total 1950 ml 2000 ml 750 ml # Bowel Movements 0 Result Diagram: 04/06/18 0603 04/06/18 0603 Objective Remarks GENERAL: Patient sitting up in chair at bedside. Appears comfortable. SKIN: Warm and dry. HEAD: Normocephalic. EYES: No scleral icterus. No injection or drainage. NECK: Supple, trachea midline. No JVD. CARDIOVASCULAR: Regular rate and rhythm without murmurs, gallops, or rubs. RESPIRATORY: Breath sounds equal bilaterally. No accessory muscle use. GASTROINTESTINAL: Abdomen soft, non-tender, nondistended. Midline incision with Steri-Strips intact. MUSCULOSKELETAL: No cyanosis, or edema. BACK: Nontender without obvious deformity. No CVA tenderness. A/P Assessment and Plan //Hysterectomy Postoperative day number 6 //Benign endometrioma. //Generalized weakness -PT continues to follow and recommends SNF. Patient continues very weak. = Add ENLIVE, out of bed recliner for several hours a day. Appreciate PT efforts. =will continue with Ledbetter on discharge as per surgical recommendations. Will continue on Macrodantin until ledbetter removed. = Continue PT for strengthening until okay to go home. Without insurance. Discharge Planning Plan discharge in 1 to 2? days when strong enough. Continue to work with PT. Appreciate assistance. Patient will need to be able to go up 12 steps. PT to continue strengthening. We will need to continue with Ledbetter, as well as Macrobid prophylaxis until follow-up with oncology as outpatient. Kyree Mahoney MD April 06, 2018 18:01
[2018-04-07] VITALS (10 sets, daily range): BP systolic 100–135; BP diastolic 53–74; PULSE 63–86; RESP 16–18; TEMP 97.9–99.1; O2SAT 97–100
[2018-04-07] MEDS: MEGESTROL ACETATE 40 MG TAB PO SCH ×3 (06:19→22:34)
[2018-04-07] MEDS: SODIUM CHLORIDE 0.9% FLUSH 10 ML FLUSH IV FLUSH SCH ×2 (09:00→22:34)
[2018-04-07] MEDS: DOCUSATE SODIUM 50 MG/SENNA 8.6 MG TAB PO SCH ×2 (09:29→22:34)
[2018-04-07] MEDS: NITROFURANTOIN MONOHYD MACROCR 100 MG CAP PO SCH (09:29)
[2018-04-07] MEDS: oxyCODONE/ACETAMINOPHEN 5 MG/325 MG TAB PO PRN ×2 (09:31→22:34)
--- NOTE | 2018-04-07 15:17 | HHI.PR ---
Subjective Remarks Patient says she continues to get stronger. Feels like she might be able to go home in the next couple of days I discussed with the physical therapist, who does not feel she will be able to go up the steps at this time. Continues to work with her. Objective Vital Signs Date Time Temp Pulse Resp B/P (MAP) Pulse Ox O2 Delivery O2 Flow Rate FiO2 04/07/18 12:48 98.1 66 17 104/65 (78) 100 04/07/18 09:52 97.9 75 18 126/65 (85) 100 04/07/18 04:13 98.8 70 16 121/70 (87) 97 04/07/18 04:07 63 04/07/18 00:08 99.1 68 16 135/74 (94) 04/06/18 23:56 68 04/06/18 20:11 71 04/06/18 20:00 Room Air 04/06/18 19:35 99.1 70 18 138/69 (92) 97 04/06/18 16:13 97.2 73 18 124/60 (81) 99 I/O 04/06/18 04/06/18 04/06/18 04/07/18 04/07/18 04/07/18 06:59 14:59 22:59 06:59 14:59 22:59 Intake Total 1330 ml 1840 ml 240 ml Output Total 750 ml 1250 ml 2500 ml Balance 580 ml 590 ml -2260 ml Intake Oral 480 ml 840 ml 240 ml IV Total 850 ml 1000 ml Output Urine Total 750 ml 1250 ml 2500 ml # Bowel Movements 0 0 Result Diagram: 04/06/18 0603 04/06/18 0603 Objective Remarks GENERAL: Patient sitting up in chair at bedside. Appears comfortable. Patient smiling today. Appears comfortable SKIN: Warm and dry. HEAD: Normocephalic. EYES: No scleral icterus. No injection or drainage. NECK: Supple, trachea midline. No JVD. CARDIOVASCULAR: Regular rate and rhythm without murmurs, gallops, or rubs. RESPIRATORY: Breath sounds equal bilaterally. No accessory muscle use. GASTROINTESTINAL: Abdomen soft, non-tender, nondistended. Midline incision with Steri-Strips intact. MUSCULOSKELETAL: No cyanosis, or edema. BACK: Nontender without obvious deformity. No CVA tenderness. A/P Assessment and Plan //Hysterectomy Postoperative day number 6 //Benign endometrioma. //Generalized weakness -PT continues to follow and recommends SNF. Patient continues very weak. = cont ENLIVE, out of bed recliner for several hours a day. Appreciate PT efforts. = Continue PT for strengthening until okay to go home. Without insurance. = 04/07. Discussed with oncology. Okay to remove Duncan catheter. Discontinue Macrodantin. Bladder scan later today to avoid distention Discharge Planning Plan discharge home when strong enough. Continue to work with PT. Appreciate assistance. Patient will need to be able to go up 12 steps. PT to continue strengthening. Kyree Mahoney MD April 07, 2018 15:17
[2018-04-08] VITALS (12 sets, daily range): BP systolic 112–133; BP diastolic 58–69; PULSE 66–85; RESP 16–18; TEMP 97.4–98.5; O2SAT 98–99
[2018-04-08] MEDS: MEGESTROL ACETATE 40 MG TAB PO SCH ×3 (05:55→21:37)
[2018-04-08] MEDS: DOCUSATE SODIUM 50 MG/SENNA 8.6 MG TAB PO SCH ×2 (12:02→21:37)
--- NOTE | 2018-04-08 15:27 | HHI.PR ---
Subjective Remarks Patient says she is getting stronger. She was able to go up and down 2 steps today. Feels like she might go home over the next few days. Objective Vital Signs Date Time Temp Pulse Resp B/P (MAP) Pulse Ox O2 Delivery O2 Flow Rate FiO2 04/08/18 12:06 98.1 78 16 130/58 (82) 99 04/08/18 09:25 82 04/08/18 08:04 97.4 75 16 121/58 (79) 99 04/08/18 04:01 16 04/08/18 03:57 66 04/08/18 03:51 98.3 67 16 133/59 (83) 98 04/08/18 00:22 98.3 75 16 126/69 (88) 98 04/08/18 00:11 70 04/07/18 20:16 Room Air 04/07/18 20:11 98.5 74 18 100/53 (69) 99 04/07/18 19:41 86 04/07/18 16:00 71 I/O 04/07/18 04/07/18 04/07/18 04/08/18 04/08/18 04/08/18 06:59 14:59 22:59 06:59 14:59 22:59 Intake Total 240 ml 120 ml 120 ml Output Total 2500 ml 750 ml Balance -2260 ml 120 ml -630 ml Intake Oral 240 ml 120 ml 120 ml Output Urine Total 2500 ml 750 ml Bladder Scan Volume Amount 2 ml # Voids 1 # Bowel Movements 0 Result Diagram: 04/06/18 0603 04/06/18 0603 Objective Remarks GENERAL: Patient sitting up in bed. Appears comfortable. Patient smiling today. Appears comfortable. No appreciable change on exam. SKIN: Warm and dry. HEAD: Normocephalic. EYES: No scleral icterus. No injection or drainage. NECK: Supple, trachea midline. No JVD. CARDIOVASCULAR: Regular rate and rhythm without murmurs, gallops, or rubs. RESPIRATORY: Breath sounds equal bilaterally. No accessory muscle use. GASTROINTESTINAL: Abdomen soft, non-tender, nondistended. Midline incision with Steri-Strips intact. MUSCULOSKELETAL: No cyanosis, or edema. BACK: Nontender without obvious deformity. No CVA tenderness. A/P Assessment and Plan //Hysterectomy Postoperative day number 6 //Benign endometrioma. //Generalized weakness -PT continues to follow and recommends SNF. Patient continues very weak. = cont ENLIVE, out of bed recliner for several hours a day. Appreciate PT efforts. = Continue PT for strengthening until okay to go home. Without insurance. = 04/07. Discussed with oncology. Okay to remove Duncan catheter. Discontinue Macrodantin. Bladder scan later today to avoid distention = 04/08. Continues working on strengthening so she can go back home. Has 12 steps. Will follow-up with oncology as outpatient. Discharge Planning Plan discharge home when strong enough. Continue to work with PT. Appreciate assistance. Patient will need to be able to go up 12 steps. PT to continue strengthening. Kyree Mahoney MD April 08, 2018 15:27
[2018-04-08] MEDS: SODIUM CHLORIDE 0.9% FLUSH 10 ML FLUSH IV FLUSH SCH ×2 (21:00→21:40)
[2018-04-09] VITALS (9 sets, daily range): BP systolic 109–132; BP diastolic 56–61; PULSE 67–80; RESP 16; TEMP 97.2–99.1; O2SAT 98–100
[2018-04-09] MEDS: MEGESTROL ACETATE 40 MG TAB PO SCH ×2 (06:01→14:00)
[2018-04-09 06:31] LABS: AUTOMATED NEUTROPHIL # 4.5 TH/MM3 (1.8-7.7); BASOPHIL # 0.1 TH/MM3 (0-0.2); BASOPHIL % 1.3 % (0.0-2.0); EOSINOPHIL # 0.2 TH/MM3 (0-0.4); EOSINOPHIL % 2.2 % (0.0-4.0); HEMATOCRIT 30.4 % (35.0-46.0); HEMOGLOBIN 10.3 GM/DL (11.6-15.3); LYMPH % 28.1 % (9.0-44.0); LYMPHOCYTE # 2.1 TH/MM3 (1.0-4.8); MEAN CELL VOLUME 88.5 FL (80.0-100.0); MEAN CORPUSCULAR HGB CONC 33.9 % (32.0-36.0); MEAN PLATELET VOLUME 9.9 FL (7.0-11.0); MONO % 7.3 % (0.0-8.0); MONOCYTE # 0.5 TH/MM3 (0-0.9); NEUT % 61.1 % (16.0-70.0); PLATELET COUNT 298 TH/MM3 (150-450); RED BLOOD COUNT 3.44 MIL/MM3 (4.00-5.30); RED CELL DISTRIBUTION WIDTH 14.2 % (11.6-17.2); WHITE BLOOD COUNT 7.4 TH/MM3 (4.0-11.0)
[2018-04-09 07:03] LABS: ALBUMIN 3.2 GM/DL (3.4-5.0); BICARBONATE 23.8 MEQ/L (21.0-32.0); CALCIUM 10.3 MG/DL (8.5-10.1); CREATININE 0.72 MG/DL (0.50-1.00); MAGNESIUM 2.4 MG/DL (1.5-2.5); PHOSPHORUS 4.4 MG/DL (2.5-4.9)
[2018-04-09] MEDS: SODIUM CHLORIDE 0.9% FLUSH 10 ML FLUSH IV FLUSH SCH (09:00)
[2018-04-09] MEDS: DOCUSATE SODIUM 50 MG/SENNA 8.6 MG TAB PO SCH (09:44)
--- NOTE | 2018-04-10 15:55 | HHI.DS ---
Discharge Summary Admission Date March 31, 2018 at 15:10 Discharge Date: April 09, 2018 Admitting Diagnosis (1) Generalized weakness ICD Code: R53.1 - Weakness (2) pelvic cyst Procedures 03/31/2018, exploratory laparotomy, resection of large pelvic mass, partial omentectomy, total abdominal hysterectomy, bilateral salpingo-oophorectomy, extensive lysis of adhesions. Brief History - From Admission 57 years old female admitted under [facility] [employer] [facility] oncology service for workup of abdominal mass CBC/BMP: 04/09/18 0610 04/09/18 0610 Significant Findings Laboratory Tests Test 04/08/18 13:37 04/09/18 06:10 25-Hydroxy Vitamin D Total 27.0 ng/ML (30-100) Red Blood Count 3.44 MIL/MM3 (4.00-5.30) Hemoglobin 10.3 GM/DL (11.6-15.3) Hematocrit 30.4 % (35.0-46.0) Albumin 3.2 GM/DL (3.4-5.0) Calcium Level 10.3 MG/DL (8.5-10.1) Hospital Course 57 years old female admitted admitted with [employer] oncology consultation for exploratory laparotomy, resection of large pelvic mass, partial omentectomy, total abdominal hysterectomy, bilateral salpingo-oophorectomy, extensive lysis of adhesions. PATHOLOGY: Large benign endometrioma, also noted some leiomyomas chronic inflammation endosalpingiosis, no evidence of malignancy. Patient also had significant generalized weakness, she had PT assessment and treatment On 04/09 patient cleared by [employer] and PT to be discharged home and follow-up as an outpatient [id number] encounter performed with the patient on discharge day, as well as physical exam, summary of hospitalization course and postdischarge plan has been D/W the patient. D/W nurse D/W casey saw operator. Discharge medications reviewed and printed and signed, post discharge follow up visit with PCP and other specialist as well as Brief hospital course and discharge summary has been placed. Pt Condition on Discharge: Good Discharge Disposition: Discharge Home Discharge Time: > 30 minutes Discharge Instructions DIET: Follow Instructions for: As Tolerated, No Restrictions Activities you can perform: See Additionl Instruction Activities to Avoid: Strenuous Activity, Bathing, Shower, Driving, Sexual Activity Follow up Referrals: Oncology - 1 Week with alexa New Medications: Misc. Devices (Roller Walker) 1 Mis Mis EA .XX NOW, #1 Nitrofurantoin Monohydrate Macrocrystals (Nitrofurantoin Monohydrate Macrocrystals) 100 Mg Cap 100 MG PO DAILY for prevent infection for 7 Days, #7 CAP Continued Medications: Hydrocodone-Acetaminophen ([employer]) 5 Mg-325 Mg Tab 1 TAB PO Q6H PRN for PAIN, #30 TAB 0 Refills (This prescription has been renewed ) Sennosides-Docusate Sodium (Gnp Senna Plus 8.6-50 mg) 8.6 Mg-50 Mg Tab 1 TAB PO BID for Constipation, #60 TAB Florencio Villavicencio MD April 10, 2018 15:55
== END 2018-04-09 16:45 | disposition home or self-care (01) | DRG 743 ==
LOC: HSDC 07:27 → HSDI 15:10 → HCIN 18:13
PROVIDERS: ADMIT Hospitalist; ATTEND Hospitalist
PROC: 0UT70ZZ Resection of Bilateral Fallopian Tubes, Open Approach (ICD-10-PCS; 2018-03-31)
PROC: 0UT20ZZ Resection of Bilateral Ovaries, Open Approach (ICD-10-PCS; 2018-03-31)
PROC: 0DBU0ZZ Excision of Omentum, Open Approach (ICD-10-PCS; 2018-03-31)
PROC: 0TN60ZZ Release Right Ureter, Open Approach (ICD-10-PCS; 2018-03-31)
PROC: 0TN70ZZ Release Left Ureter, Open Approach (ICD-10-PCS; 2018-03-31)
PROC: 0UT90ZZ Resection of Uterus, Open Approach (ICD-10-PCS; principal; 2018-03-31 11:07)
DX: N80.1 Endometriosis of ovary (principal); D25.9 Leiomyoma of uterus, unspecified; D57.3 Sickle-cell trait; K66.0 Peritoneal adhesions (postprocedural) (postinfection); N94.89 Other specified conditions associated with female genital organs and menstrual cycle; Z88.0 Allergy status to penicillin
CPT/HCPCS: 36430; 80048; 80069; 82306; 82607; 82805; 83735; 85025; 85384; 85610; 85730; 86850; 86900; 86901; 86920; 86922; 88112; 88305; 88307; 88331; 93005; 94150; J0131; J1100; J1170; J1644; J1885; J1956; J2270; J2405; J3010; J7120; P9016